=== PATIENT | male | born 1955 | race Caucasian/White ===

== ENCOUNTER 2016-09-15 16:53 | Inpatient (IN) | payer OTHER ==
[~2016-09-15] VITALS: Ht 170.2 cm; Wt 83.5 kg
[2016-09-15] VITALS (7 sets, daily range): BP systolic 155–189; BP diastolic 77–106; PULSE 58–93; RESP 16–20; TEMP 98.2–98.6; O2SAT 95–98
[~2016-09-15 16:53] MED LIST: ADVA100A INH; CYAN100017 PO; DULO20 PO; FENT75T TD; FLUT1INH INH; OXYC1TAB63 PO; OXYGENTANK NAS.CANULA; TAMS5CAP PO; VANC125C3 PO; WALKER WHEELS/F1 MIS; WHEEMIS3
[2016-09-15 17:23] LABS: AUTOMATED NEUTROPHIL # 9.2 TH/MM3 (1.8-7.7); BASOPHIL # 0.1 TH/MM3 (0-0.2); BASOPHIL % 1.1 % (0.0-2.0); EOSINOPHIL # 0.1 TH/MM3 (0-0.4); HEMATOCRIT 42.2 % (39.0-51.0); HEMO FLAGS DIFF FINAL; LYMPH % 14.1 % (9.0-44.0); LYMPHOCYTE # 1.7 TH/MM3 (1.0-4.8); MEAN CELL VOLUME 81.6 FL (80.0-100.0); MEAN CORPUSCULAR HEMOGLOBIN 27.6 PG (27.0-34.0); MEAN CORPUSCULAR HGB CONC 33.8 % (32.0-36.0); MONO % 8.5 % (0.0-8.0); NEUT % 75.3 % (16.0-70.0); PLATELET COUNT 438 TH/MM3 (150-450); RED BLOOD COUNT 5.17 MIL/MM3 (4.50-5.90); RED CELL DISTRIBUTION WIDTH 16.1 % (11.6-17.2); WHITE BLOOD COUNT 12.2 TH/MM3 (4.0-11.0)
[2016-09-15] MEDS ORDERED: SODIUM CHLOR 0.9% 1000 ML INJ 1,000 ML IV SCH (17:42)
--- NOTE | 2016-09-15 17:45 | RADRPT ---
EXAM DATE/TIME: 09/15/2016 17:27 [place] COMPARISON: CHEST PA & LAT, August 14, 2016, 9:54. INDICATIONS : Shortness of breath and chest tightness. MEDICAL HISTORY : Chronic obstructive pulmonary disease. Hypertension. Asthma. SURGICAL HISTORY : Chest tube, July 2016. ENCOUNTER: Initial ACUITY: 2 days PAIN SCORE: 0/10 LOCATION: Bilateral chest FINDINGS: The examination demonstrates chronic interstitial changes within the pulmonary parenchyma. The lungs are otherwise clear. The heart is normal in size. The bony structures are grossly intact. CONCLUSION: 1. There are chronic interstitial changes within the pulmonary parenchyma. Stable compared to prior e xam. Leeroy Mensah MD on September 15, 2016 at 17:42 Board Certified Radiologist. This report was verified electronically.
[2016-09-15 17:58] LABS: ALKALINE PHOSPHATASE 77 U/L (45-117); ALT (GPT) 29 U/L (12-78); ANION GAP 9 MEQ/L (5-15); AST (GOT) 23 U/L (15-37); BLOOD UREA NITROGEN 4 MG/DL (7-18); CHLORIDE 101 MEQ/L (98-107); GLOMERULAR FILTRATION RATE 119 ML/MIN (>89); SODIUM (NA) 139 MEQ/L (136-145); TOTAL BILIRUBIN ADULT 0.6 MG/DL (0.2-1.0)
[2016-09-15 17:59] LABS: CREATINE KINASE 35 U/L (39-308)
[2016-09-15] MEDS ORDERED: methylPREDNISolone SOD SUCC 125 MG/2 ML VIAL IVP ONE (18:00)
[2016-09-15 18:01] LABS: POTASSIUM 2.9 MEQ/L (3.5-5.1)
--- NOTE | 2016-09-15 18:04 | PD ---
HPI Chief Complaint: Respiratory Distress Time Seen by Provider: 17:58 Travel History International Travel<30 days: No Contact w/Intl Traveler<30days: No Traveled to known affect area: No History of Present Illness HPI 61-year-old male that presents to the ED for evaluation of shortness of breath and burning pain in the groin. Per patient his been short of breath for the past 2 days. Per patient he has a history of COPD and per patient he was discharged here with no inhalers. Per patient he has not used any medicine be discharged. Per patient he was put on a Mendoza secondary to urinary obstruction and has not follow with her neurologist. Per patient he did had one follow-up with the clinic after being discharged here but has not follow with anybody else. States that the burning its painful and is 8 out of 10. Patient chronically takes fentanyl and pain medication for chronic pain. Patient states that his pain is worsening and that what he believes is causing some of his shortness of breath. He was recently admitted about a month ago for severe pleural effusion and patient had multiple complications during that time. He denies any abdominal pain. He denies any nausea or vomiting. No bowel movement issues. He denies any cough. No fevers, chills or sweats. Allergy to codeine. PFSH Past Medical History Cardiovascular Problems: Yes COPD: Yes GERD: Yes Hypertension: Yes Past Surgical History Appendectomy: Yes Neurologic Surgery: Yes (BACK X3) Other Surgery: Yes (LLE GANGRENE REMOVAL) Social History Alcohol Use: No Tobacco Use: No (2007) Substance Use: No Allergies-Medications (Allergen,Severity, Reaction): Coded Allergies: Codeine (Verified Allergy, Severe, Seizures, 09/15/16) Reported Meds & Prescriptions Reported Meds & Active Scripts Active Cymbalta DR (Duloxetine HCl) 20 Mg Capdr 20 Mg PO DAILY Duragesic Patch 72 HR (Fentanyl) 75 Mcg/Hr Patch 1 Patch TD Q3D Review of Systems Except as stated in HPI: all other systems reviewed are Neg Physical Exam Narrative GENERAL: SKIN: Warm and dry. HEAD: Atraumatic. Normocephalic. EYES: Pupils equal and round. No scleral icterus. No injection or drainage. ENT: No nasal bleeding or discharge. Mucous membranes pink and moist. Tongue is midline. No uvula deviation. NECK: Trachea midline. No JVD. CARDIOVASCULAR: Regular rate and rhythm. No murmurs, S3, S4. RESPIRATORY: No accessory muscle use. Mild wheezing heard in all lung ruiz. Breath sounds equal bilaterally. GASTROINTESTINAL: Abdomen soft, non-tender, nondistended. Hepatic and splenic margins not palpable. MUSCULOSKELETAL: Extremities without clubbing, cyanosis, or edema. No obvious deformities. Full ROM of the upper and lower extremities. 2+ pulses bilaterally. NEUROLOGICAL: Awake and alert. No obvious cranial nerve deficits. Motor grossly within normal limits. Five out of 5 muscle strength in the arms and legs. Normal speech. PSYCHIATRIC: Appropriate mood and affect; insight and judgment normal. Data Data Last Documented VS Vital Signs Date Time Temp Pulse Resp B/P Pulse Ox O2 Delivery O2 Flow Rate FiO2 09/15/16 17:59 93 16 174/99 96 Nasal Cannula 2 09/15/16 16:55 98.2 Orders Complete Blood Count With Diff (09/15/16 17:00) Comprehensive Metabolic Panel (09/15/16 17:00) Ckmb (Isoenzyme) Profile (09/15/16 17:00) Troponin I (09/15/16 17:00) Prothrombin Time / Inr (Pt) (09/15/16 17:00) Act Partial Throm Time (Ptt) (09/15/16 17:00) Blood Culture (09/15/16 17:00) Lipase (09/15/16 17:00) Urinalysis - C+S If Indicated (09/15/16 17:00) Chest, Single Ap (09/15/16 17:00) Iv Access Insert/Monitor (09/15/16 17:00) Ecg Monitoring (09/15/16 17:00) Oximetry (09/15/16 17:00) Lactic Acid (09/15/16 17:00) Replace Mendoza (09/15/16 17:05) Electrocardiogram (09/15/16 ) Sodium Chlor 0.9% 1000 Ml Inj (Ns 1000 M (09/15/16 17:42) Methylprednisolone So Succ Inj (Solumedr (09/15/16 18:00) Albuterol Neb (Albuterol Neb) (09/15/16 18:00) Magnesium (Mg) (09/15/16 18:01) Potassium Cl 40 Meq/30 Ml Liq (Kcl 40 Me (09/15/16 18:15) Urine Culture (09/15/16 17:55) Ceftriaxone Inj (Rocephin Inj) (09/15/16 19:00) Admit Order (Ed Use Only) (09/15/16 18:56) Labs Laboratory Tests Test 09/15/16 09/15/16 09/15/16 17:09 17:45 17:55 White Blood Count 12.2 TH/MM3 Red Blood Count 5.17 MIL/MM3 Hemoglobin 14.3 GM/DL Hematocrit 42.2 % Mean Corpuscular Volume 81.6 FL Mean Corpuscular Hemoglobin 27.6 PG Mean Corpuscular Hemoglobin 33.8 % Concent Red Cell Distribution Width 16.1 % Platelet Count 438 TH/MM3 Mean Platelet Volume 8.3 FL Neutrophils (%) (Auto) 75.3 % Lymphocytes (%) (Auto) 14.1 % Monocytes (%) (Auto) 8.5 % Eosinophils (%) (Auto) 1.0 % Basophils (%) (Auto) 1.1 % Neutrophils # (Auto) 9.2 TH/MM3 Lymphocytes # (Auto) 1.7 TH/MM3 Monocytes # (Auto) 1.0 TH/MM3 Eosinophils # (Auto) 0.1 TH/MM3 Basophils # (Auto) 0.1 TH/MM3 CBC Comment DIFF FINAL Differential Comment Sodium Level 139 MEQ/L Potassium Level 2.9 MEQ/L Chloride Level 101 MEQ/L Carbon Dioxide Level 29.0 MEQ/L Anion Gap 9 MEQ/L Blood Urea Nitrogen 4 MG/DL Creatinine 0.68 MG/DL Estimat Glomerular Filtration 119 ML/MIN Rate Random Glucose 93 MG/DL Calcium Level 9.2 MG/DL Total Bilirubin 0.6 MG/DL Aspartate Amino Transf 23 U/L (AST/SGOT) Alanine Aminotransferase 29 U/L (ALT/SGPT) Alkaline Phosphatase 77 U/L Total Creatine Kinase 35 U/L Troponin I LESS THAN 0.02 NG/ML Total Protein 7.3 GM/DL Albumin 3.8 GM/DL Lipase 114 U/L Lactic Acid Level 1.1 mmol/L Urine Color YELLOW Urine Turbidity CLEAR Urine pH 7.5 Urine Specific [place] 1.010 Urine Protein 30 mg/dL Urine Glucose (UA) NEG mg/dL Urine Ketones 10 mg/dL Urine Occult Blood SMALL Urine Nitrite NEG Urine Bilirubin NEG Urine Urobilinogen LESS THAN 2.0 MG/DL Urine Leukocyte Esterase LARGE Urine RBC /hpf Urine WBC 140 /hpf Urine Bacteria OCC /hpf Urine Mucus FEW /lpf Microscopic Urinalysis Comment CULTURE INDICATED MDM Medical Decision Making Medical Screen Exam Complete: Yes Emergency Medical Condition: Yes Medical Record Reviewed: Yes Interpretation(s) CBC & BMP Diagram 09/15/16 17:09 EKG shows sinus rhythm with no sign of acute ischemia or arrhythmia. Read by me and attending. troponin negative CKMB negative UA shows UTI lactic acid neg Last Impressions Chest X-Ray 09/15/16 1700 Signed Impressions: Service Date/Time: Sunday, September 15, 2016 17:27 - CONCLUSION: 1. There are chronic interstitial changes within the pulmonary parenchyma. Stable compared to prior exam. Leeroy Mensah MD Differential Diagnosis UTI versus polynephritis versus electrolyte abnormality versus COPD exacerbation versus COPD versus acute on chronic pain versus chronic pain versus cystitis versus chest pain Narrative Course 61-year-old male that presents to the ED for evaluation of shortness of breath and urinary issues. Patient was properly examined and was found to have signs and symptoms consistent with appears to be at this time COPD exacerbation as well as exacerbation of pain. Patient appears to have signs and symptoms consistent also with infection of the urine. Patient has had a Mendoza since been discharged. Has not had any changes on it. He has not followed urologist. The urine on the back itself appears to be somewhat cloudy. The recommend changing the Mendoza as well as taking for urinary tract infection and sepsis. Patient is agreeable with this. Labs and imaging showed UTI as well as an elevated WBC and elevated heart rate. Patient meets sepsis criteria. Case was discussed in my attending Dr Moy who evaluated the patient and recommend admission for catheter related UTI and early sepsis. This was discussed with the patient agrees with plan. Patient is self-pay and follows with the community clinic. Patient will be admitted to [facility] for obs. Dr Diane agrees to admit. Procedures EKG Prior to Arrival: No Sepsis Criteria SIRS Criteria (2 or more): Heart rate over 90 (only one documented high HR), WBC > 33634, < 4000 or > 10% bands Sepsis Criteria (SIRS+source): Infect source susp/known Criteria Outcome: Meets SIRS criteria Diagnosis Primary Impression: Cystitis Additional Impressions: COPD (chronic obstructive pulmonary disease) Qualified Code: J42 - Chronic bronchitis, unspecified chronic bronchitis type Hypokalemia Admitting Information Admitting Physician Requests: Observation Martin Pedro Sep 15, 2016 18:04
[2016-09-15] MEDS: RESP: ALBUTEROL 2.5 MG/3 ML NEB (SCH) INH ×2 (18:15→19:52)
[2016-09-15] MEDS ORDERED: POTASSIUM CL 40 MEQ/30 ML LIQ UDC PO ONE (18:15)
[2016-09-15 18:30] LABS: BACTERIA, URINE OCC /hpf; BLOOD, URINE SMALL (NEG); COMMENT (UR) CULTURE INDICATED; CULTURE IF INDICATED CULTURE INDICATED; GLUCOSE,URINE NEG (NEG); KETONE, URINE 10 mg/dL (NEG); MUCUS URINE FEW /lpf (OCC); NITRITE,URINE NEG (NEG); PH, URINE 7.5 (5.0-8.5); URINE COLOR YELLOW (YELLW/STRAW)
--- NOTE | 2016-09-15 18:54 | PD ---
Physical Exam Date Seen by Provider: Sep 15, 2016 Time Seen by Provider: 17:00 Narrative I, Dr. Villarreal, have reviewed the advance practice practitioner's documentation and am in agreement, met with the patient face to face, made the diagnosis, and the medical decision making was done by me. *My assessment and Findings: Patient seen and evaluated with PA, please see PA note for further details. Here complaining of dysuria and shortness of breath. Initial evaluation shows wheezing bilaterally. Cardiac exam is unremarkable. EKG did not show any signs of acute dysrhythmias or ST changes. Laboratory Tests Test 09/15/16 09/15/16 17:09 17:55 White Blood Count 12.2 TH/MM3 (4.0-11.0) Neutrophils (%) (Auto) 75.3 % (16.0-70.0) Monocytes (%) (Auto) 8.5 % (0.0-8.0) Neutrophils # (Auto) 9.2 TH/MM3 (1.8-7.7) Monocytes # (Auto) 1.0 TH/MM3 (0-0.9) Potassium Level 2.9 MEQ/L (3.5-5.1) Blood Urea Nitrogen 4 MG/DL (7-18) Total Creatine Kinase 35 U/L (39-308) Troponin I LESS THAN 0.02 NG/ML (0.02-0.05) Urine Protein 30 mg/dL (NEG-TRACE) Urine Ketones 10 mg/dL (NEG) Urine Occult Blood SMALL (NEG) Urine Leukocyte Esterase LARGE (NEG) Urine WBC 140 /hpf (0-5) Urine Bacteria OCC /hpf (NONE) Urine Mucus FEW /lpf (OCC) Last 24 hours Impressions Chest X-Ray 09/15/16 1700 Signed Impressions: Service Date/Time: Thursday, September 15, 2016 17:27 - CONCLUSION: 1. There are chronic interstitial changes within the pulmonary parenchyma. Stable compared to prior exam. Leeroy Mensah MD Chest x-ray did not show any signs of acute pulmonary processes. He was given Solu-Medrol and nebulizers in the ER. Lab work shows significant UTI. At this point, there is concern for underlying sepsis and cultures were done followed by IV antibiotics in the ER. Plan to admit for further treatment. Case is discussed with Dr. Diane for admission. Data Data Last Documented VS Vital Signs Date Time Temp Pulse Resp B/P Pulse Ox O2 Delivery O2 Flow Rate FiO2 09/15/16 17:59 93 16 174/99 96 Nasal Cannula 2 09/15/16 16:55 98.2 Orders Complete Blood Count With Diff (09/15/16 17:00) Comprehensive Metabolic Panel (09/15/16 17:00) Ckmb (Isoenzyme) Profile (09/15/16 17:00) Troponin I (09/15/16 17:00) Prothrombin Time / Inr (Pt) (09/15/16 17:00) Act Partial Throm Time (Ptt) (09/15/16 17:00) Blood Culture (09/15/16 17:00) Lipase (09/15/16 17:00) Urinalysis - C+S If Indicated (09/15/16 17:00) Chest, Single Ap (09/15/16 17:00) Iv Access Insert/Monitor (09/15/16 17:00) Ecg Monitoring (09/15/16 17:00) Oximetry (09/15/16 17:00) Lactic Acid (09/15/16 17:00) Replace Mendoza (09/15/16 17:05) Electrocardiogram (09/15/16 ) Sodium Chlor 0.9% 1000 Ml Inj (Ns 1000 M (09/15/16 17:42) Methylprednisolone So Succ Inj (Solumedr (09/15/16 18:00) Albuterol Neb (Albuterol Neb) (09/15/16 18:00) Magnesium (Mg) (09/15/16 18:01) Potassium Cl 40 Meq/30 Ml Liq (Kcl 40 Me (09/15/16 18:15) Urine Culture (09/15/16 17:55) Ceftriaxone Inj (Rocephin Inj) (09/15/16 19:00) Labs Laboratory Tests Test 09/15/16 09/15/16 09/15/16 17:09 17:45 17:55 White Blood Count 12.2 TH/MM3 Red Blood Count 5.17 MIL/MM3 Hemoglobin 14.3 GM/DL Hematocrit 42.2 % Mean Corpuscular Volume 81.6 FL Mean Corpuscular Hemoglobin 27.6 PG Mean Corpuscular Hemoglobin 33.8 % Concent Red Cell Distribution Width 16.1 % Platelet Count 438 TH/MM3 Mean Platelet Volume 8.3 FL Neutrophils (%) (Auto) 75.3 % Lymphocytes (%) (Auto) 14.1 % Monocytes (%) (Auto) 8.5 % Eosinophils (%) (Auto) 1.0 % Basophils (%) (Auto) 1.1 % Neutrophils # (Auto) 9.2 TH/MM3 Lymphocytes # (Auto) 1.7 TH/MM3 Monocytes # (Auto) 1.0 TH/MM3 Eosinophils # (Auto) 0.1 TH/MM3 Basophils # (Auto) 0.1 TH/MM3 CBC Comment DIFF FINAL Differential Comment Sodium Level 139 MEQ/L Potassium Level 2.9 MEQ/L Chloride Level 101 MEQ/L Carbon Dioxide Level 29.0 MEQ/L Anion Gap 9 MEQ/L Blood Urea Nitrogen 4 MG/DL Creatinine 0.68 MG/DL Estimat Glomerular Filtration 119 ML/MIN Rate Random Glucose 93 MG/DL Calcium Level 9.2 MG/DL Total Bilirubin 0.6 MG/DL Aspartate Amino Transf 23 U/L (AST/SGOT) Alanine Aminotransferase 29 U/L (ALT/SGPT) Alkaline Phosphatase 77 U/L Total Creatine Kinase 35 U/L Troponin I LESS THAN 0.02 NG/ML Total Protein 7.3 GM/DL Albumin 3.8 GM/DL Lipase 114 U/L Lactic Acid Level 1.1 mmol/L Urine Color YELLOW Urine Turbidity CLEAR Urine pH 7.5 Urine Specific [place] 1.010 Urine Protein 30 mg/dL Urine Glucose (UA) NEG mg/dL Urine Ketones 10 mg/dL Urine Occult Blood SMALL Urine Nitrite NEG Urine Bilirubin NEG Urine Urobilinogen LESS THAN 2.0 MG/DL Urine Leukocyte Esterase LARGE Urine RBC /hpf Urine WBC 140 /hpf Urine Bacteria OCC /hpf Urine Mucus FEW /lpf Microscopic Urinalysis Comment CULTURE INDICATED MDM Medical Record Reviewed: Yes Supervised Visit with SWAPNIL: Yes Diagnosis Primary Impression: Sepsis Additional Impressions: Acute exacerbation of chronic obstructive pulmonary disease (COPD) URINARY TRACT INFECTION, SITE NOT SPECIFIED Admitting Information Admitting Physician Requests: Admit Carolin Villarreal MD Sep 15, 2016 18:54
[2016-09-15] MEDS ORDERED: ONDANSETRON HCL 4 MG/2 ML VIAL IVP PRN (19:00)
[2016-09-15] MEDS ORDERED: SODIUM CHLORIDE 0.9% FLUSH 5 ML FLUSH FLUSH PRN (19:00)
[2016-09-15] MEDS ORDERED: ACETAMINOPHEN 325 MG TAB PO PRN (19:00)
[2016-09-15] MEDS ORDERED: BISACODYL 10 MG SUPP PR PRN (19:00)
[2016-09-15] MEDS ORDERED: RESP: ALBUTEROL 2.5 MG/IPRATROPIUM 0.5 MG NEB (PRN) NEB (19:00)
[2016-09-15] MEDS ORDERED: cefTRIAXone INJ 1,000 MG in SODIUM CHLORIDE 0.9% INJ 100 ML IV ONE (19:00)
--- NOTE | 2016-09-15 19:04 | HHI.HP ---
[facility] Primary Care Physician No Primary Care Physician Admission Diagnosis cystitis with urinary lipscomb, COPD exacerbation Diagnoses: (1) COPD (chronic obstructive pulmonary disease) Diagnosis: Principal (2) Hypokalemia Diagnosis: Principal (3) Indwelling catheter present on admission Diagnosis: Principal (4) UTI (urinary tract infection) Diagnosis: Principal (5) HTN (hypertension) Diagnosis: Principal Travel History International Travel<30 Days: No Contact w/Intl Traveler <30 Da: No Traveled to Known Affected Are: No History of Present Illness This is a 61-year-old male with a PMH of COPD, Depression, Chronic Pain, HTN and Neurogenic Bladder w/ Indwelling Lipscomb who came to the ER w/ complaints of SOB and burning w/ urination x2 days. Denies fever, chills or cough. Has been using home MDI/Nebulizer w/ minimal relief. On arrival, BP 189/106, HR 83, O2 sat 97% on RA, Afebrile. Currently BP 136/98, HR 87. WBC 12.2. K+ 2.9. Lactic Acid 1.7. Troponin negative. UA positive for UTI. CXR with chronic interstitial changes, no acute findings. S/p Solu-Medrol and DuoNeb w/ some relief. S/p Rocephin in ER. Review of Systems Other ROS: 14 point review of systems otherwise negative. Past Family Social History Past Medical History PMH: COPD, HTN, Depression, Chronic Pain and Neurogenic Bladder w/ Indwelling Lipscomb Past Surgical History PAST SURGICAL HISTORY: Appendectomy, Back Surgery, LLE Allergies: Coded Allergies: Codeine (Verified Allergy, Severe, Seizures, 09/15/16) Family History PAST FAMILY HISTORY: Reviewed. No h/o DM or CAD Social History PAST SOCIAL HISTORY: Negative for alcohol, tobacco or drugs. Physical Exam Vital Signs Vital Signs Date Time Temp Pulse Resp B/P Pulse Ox O2 Delivery O2 Flow Rate FiO2 09/15/16 17:59 93 16 174/99 96 Nasal Cannula 2 09/15/16 17:59 85 16 174/99 96 Nasal Cannula 2 09/15/16 17:59 96 2 1/27/17 16:55 98.2 83 18 189/106 97 Physical Exam PE: GENERAL: Middle-aged white male in no acute distress. HEENT: PERRLA, EOMI. No scleral icterus or conjunctival pallor. No lid lag or facial droop. CARDIOVASCULAR: Regular rate and rhythm. No obvious murmurs to auscultation. No chest tenderness to palpation. RESPIRATORY: No obvious rhonchi. Occasional wheezing. Clear to auscultation. Breath sounds equal bilaterally. GASTROINTESTINAL: Abdomen soft, non-tender, nondistended. BS normal. MUSCULOSKELETAL: Extremities without clubbing, cyanosis, or edema. No obvious deformities. NEUROLOGICAL: Awake, alert and oriented x4. No focal neurologic deficits. Moving both upper and lower extremities spontaneously. Laboratory Laboratory Tests Test 09/15/16 09/15/16 09/15/16 17:09 17:45 17:55 White Blood Count 12.2 Red Blood Count 5.17 Hemoglobin 14.3 Hematocrit 42.2 Mean Corpuscular Volume 81.6 Mean Corpuscular Hemoglobin 27.6 Mean Corpuscular Hemoglobin 33.8 Concent Red Cell Distribution Width 16.1 Platelet Count 438 Mean Platelet Volume 8.3 Neutrophils (%) (Auto) 75.3 Lymphocytes (%) (Auto) 14.1 Monocytes (%) (Auto) 8.5 Eosinophils (%) (Auto) 1.0 Basophils (%) (Auto) 1.1 Neutrophils # (Auto) 9.2 Lymphocytes # (Auto) 1.7 Monocytes # (Auto) 1.0 Eosinophils # (Auto) 0.1 Basophils # (Auto) 0.1 CBC Comment DIFF FINAL Differential Comment Sodium Level 139 Potassium Level 2.9 Chloride Level 101 Carbon Dioxide Level 29.0 Anion Gap 9 Blood Urea Nitrogen 4 Creatinine 0.68 Estimat Glomerular Filtration 119 Rate Random Glucose 93 Calcium Level 9.2 Total Bilirubin 0.6 Aspartate Amino Transf 23 (AST/SGOT) Alanine Aminotransferase 29 (ALT/SGPT) Alkaline Phosphatase 77 Total Creatine Kinase 35 Troponin I LESS THAN 0.02 Total Protein 7.3 Albumin 3.8 Lipase 114 Lactic Acid Level 1.1 Urine Color YELLOW Urine Turbidity CLEAR Urine pH 7.5 Urine Specific [place] 1.010 Urine Protein 30 Urine Glucose (UA) NEG Urine Ketones 10 Urine Occult Blood SMALL Urine Nitrite NEG Urine Bilirubin NEG Urine Urobilinogen LESS THAN 2.0 Urine Leukocyte Esterase LARGE Urine RBC Urine WBC 140 Urine Bacteria OCC Urine Mucus FEW Microscopic Urinalysis Comment CULTURE INDICATED Date/Time Procedure Status Source Growth 09/15/16 17:55 Urine Culture Received Urine Clean Catch Pending 09/15/16 17:45 Aerobic Blood Culture Received Blood Peripheral Pending 09/15/16 17:45 Anaerobic Blood Culture Received Blood Peripheral Pending Result Diagram: 09/15/16 1709 09/15/16 170 Assessment and Plan Problem List: (1) COPD (chronic obstructive pulmonary disease) ICD Code: J44.9 Status: Chronic (2) Hypokalemia ICD Code: E87.6 Status: Acute (3) Indwelling catheter present on admission ICD Code: Z93.6 Status: Acute (4) UTI (urinary tract infection) ICD Code: N39.0 Status: Acute (5) HTN (hypertension) ICD Code: I10 Status: Chronic Assessment and Plan A/P: 1. COPD: Chronic Respiratory Failure w/ Acute Exacerbation. S/p Solu-Medrol and DuoNeb w/ some improvement. CXR w/ no acute findings, images reviewed by me. Continue Solu-Medrol, DuoNeb, Symbicort, Mucinex. O2 sat stable. 2. Hypokalemia: K+ 2.9. S/p replacement in ER, will recheck and replace as needed. 3. Indwelling Lipscomb: h/o Neurogenic Bladder w/ Obstruction s/p indwelling Lipscomb. 4. UTI: U/a w/ UTI, Afebrile, WBC 12. S/p Rocephin in ER, will continue w/ IV Abx. Repeat labs in am. 5. HTN: Not on antihypertensives. BP 180's on arrival, currently 160's systolic. Will monitor. 6. DVT Prophylaxis: SCD/Teds. 7. Social work for d/c planning as needed. 8. Case discussed w/ ER physician at length. Problem Qualifiers (1) COPD (chronic obstructive pulmonary disease): Qualified Code: J42 - Chronic bronchitis, unspecified chronic bronchitis type Irma Diane MD Sep 15, 2016 19:04
[2016-09-15 19:17] LABS: PROTHROMBIN TIME - PATIENT 10.7 SEC (9.8-11.6)
[2016-09-15] MEDS: RESP: ALBUTEROL 2.5 MG/IPRATROPIUM 0.5 MG NEB (SCH) NEB (20:00)
[2016-09-15] MEDS: SODIUM CHLORIDE 0.9% FLUSH 5 ML FLUSH FLUSH SCH (21:59)
[2016-09-15] MEDS: guaiFENesin E.R. 600 MG TAB PO SCH (22:01)
[2016-09-15] MEDS: BUDESONIDE-FORMOTEROL 160/4.5 MCG INHALER INH SCH (22:02)
[2016-09-15] MEDS: fentaNYL 75 MCG/HR PATCH TD SCH (22:02)
[2016-09-15] MEDS: MORPHINE SULFATE 4 MG/ML INJ IV PRN (22:47)
[2016-09-15] MEDS: methylPREDNISolone SOD SUCC 40 MG/1 ML VIAL IV PUSH SCH (22:47)
[2016-09-16] VITALS (11 sets, daily range): BP systolic 125–176; BP diastolic 65–90; PULSE 73–94; RESP 18–20; TEMP 96.2–98.6; O2SAT 94–97
[2016-09-16] MEDS: MORPHINE SULFATE 4 MG/ML INJ IV PRN ×4 (02:47→21:21)
[2016-09-16] MEDS: methylPREDNISolone SOD SUCC 40 MG/1 ML VIAL IV PUSH SCH ×3 (05:46→18:00)
[2016-09-16 06:50] LABS: AUTOMATED NEUTROPHIL # 9.2 TH/MM3 (1.8-7.7); BASOPHIL % 0.1 % (0.0-2.0); HEMATOCRIT 38.8 % (39.0-51.0); HEMO FLAGS DIFF FINAL; LYMPH % 8.1 % (9.0-44.0); LYMPHOCYTE # 0.8 TH/MM3 (1.0-4.8); MEAN CELL VOLUME 82.4 FL (80.0-100.0); MEAN CORPUSCULAR HEMOGLOBIN 27.2 PG (27.0-34.0); MONO % 1.1 % (0.0-8.0); NEUT % 90.7 % (16.0-70.0); PLATELET COUNT 401 TH/MM3 (150-450); RED BLOOD COUNT 4.71 MIL/MM3 (4.50-5.90); RED CELL DISTRIBUTION WIDTH 16.1 % (11.6-17.2); WHITE BLOOD COUNT 10.1 TH/MM3 (4.0-11.0)
[2016-09-16 07:19] LABS: ALKALINE PHOSPHATASE 67 U/L (45-117); ALT (GPT) 23 U/L (12-78); ANION GAP 9 MEQ/L (5-15); AST (GOT) 16 U/L (15-37); BICARBONATE 27.5 MEQ/L (21.0-32.0); BLOOD UREA NITROGEN 7 MG/DL (7-18); CHLORIDE 102 MEQ/L (98-107); GLOMERULAR FILTRATION RATE 137 ML/MIN (>89); SODIUM (NA) 138 MEQ/L (136-145); TOTAL BILIRUBIN ADULT 0.4 MG/DL (0.2-1.0)
[2016-09-16] MEDS: RESP: ALBUTEROL 2.5 MG/IPRATROPIUM 0.5 MG NEB (SCH) NEB ×4 (08:03→22:27)
[2016-09-16] MEDS: BUDESONIDE-FORMOTEROL 160/4.5 MCG INHALER INH SCH ×2 (08:49→21:20)
[2016-09-16] MEDS: SODIUM CHLORIDE 0.9% FLUSH 5 ML FLUSH FLUSH SCH ×2 (08:49→21:21)
[2016-09-16] MEDS: guaiFENesin E.R. 600 MG TAB PO SCH ×2 (08:49→21:00)
[2016-09-16] MEDS: DULoxetine HCl DR 20 MG CAP PO SCH (08:49)
--- NOTE | 2016-09-16 09:13 | HHI.PR ---
Subjective Remarks Follow up for complicated UTI and COPD exacerbation. The patient reports continued lower abdominal/suprapubic pain and burning upon urination. He also reports pressure when trying to have a BM. Denies fevers or chills. He feels his breathing is improved, denies any current shortness of breath. He wears oxygen at home. He has no other medical complaints at this time. Objective Vitals Vital Signs Date Time Temp Pulse Resp B/P Pulse Ox O2 Delivery O2 Flow Rate FiO2 09/16/16 08:03 97 Nasal Cannula 2.00 09/16/16 08:00 96.2 73 18 169/82 96 09/16/16 03:54 98.6 77 20 160/77 95 09/15/16 23:55 98.6 58 20 155/78 95 09/15/16 22:12 98 Nasal Cannula 2.00 09/15/16 22:00 90 09/15/16 21:13 98.6 86 20 171/77 97 09/15/16 20:00 87 16 176/98 96 Nasal Cannula 2 09/15/16 17:59 93 16 174/99 96 Nasal Cannula 2 09/15/16 17:59 85 16 174/99 96 Nasal Cannula 2 09/15/16 17:59 96 2 09/15/16 16:55 98.2 83 18 189/106 97 I/O 09/15/16 09/15/16 09/15/16 09/16/16 09/16/16 09/16/16 07:00 15:00 23:00 07:00 15:00 23:00 Output Total 450 ml Balance -450 ml Output Urine Total 450 ml # Bowel Movements 1 1 Result Diagram: 09/16/16 0515 09/16/16 0515 Imaging Last Impressions Chest X-Ray 09/15/16 1700 Signed Impressions: Service Date/Time: Thursday, September 15, 2016 17:27 - CONCLUSION: 1. There are chronic interstitial changes within the pulmonary parenchyma. Stable compared to prior exam. Leeroy Mensah MD Objective Remarks GENERAL: Well-developed, well-nourished male patient in [facility]. SKIN: Warm and dry. HEAD: Atraumatic. Normocephalic. EYES: Pupils equal and round. No scleral icterus. No injection or drainage. ENT: No nasal bleeding or discharge. Mucous membranes pink and moist. NECK: Trachea midline. CARDIOVASCULAR: Regular rate and rhythm. RESPIRATORY: No accessory muscle use. Diminished breath sounds at bilateral bases, otherwise clear to auscultation, no wheezing. Breath sounds equal bilaterally. GASTROINTESTINAL: Abdomen soft, non-tender, nondistended. Hepatic and splenic margins not palpable. GENITOURINARY: Mendoza catheter in place, no surrounding discharge/bleeding; urine clear yellow. MUSCULOSKELETAL: 1+ bilateral lower extremity edema. No obvious deformities. NEUROLOGICAL: Awake and alert. No obvious cranial nerve deficits. Motor grossly within normal limits. Normal speech. PSYCHIATRIC: Appropriate mood and affect; insight and judgment normal. Medications and IVs Current Medications Medications (Trade) Dose Ordered Sig/Joselin Route Start Time Stop Time Status Last Admin (SoluMEDROL INJ) 40 mg Q6HR IV PUSH 09/16/16 00:00 09/16/16 05:46 (Mucinex Er) 600 mg BID PO 09/15/16 21:00 09/16/16 08:49 Budesonide/ Formoterol Fumarate 2 puff 2 puff Q12HR INH 09/15/16 21:00 09/16/16 08:49 (Rocephin Inj/NS Inj) 100 ml @ 200 mls/hr Q24H IV 09/16/16 18:00 (NS Flush) 2 ml UNSCH PRN FLUSH 09/15/16 19:00 (NS Flush) 2 ml BID FLUSH 09/15/16 21:00 09/16/16 08:49 (Zofran Inj) 4 mg Q6H PRN IVP 09/15/16 19:00 (Dulcolax Supp) 10 mg DAILY PRN NE 09/15/16 19:00 (Tylenol) 650 mg Q6H PRN PO 09/15/16 19:00 (Morphine Inj) 2 mg Q3H PRN IV 09/15/16 19:00 09/16/16 08:59 (Cymbalta Dr) 20 mg DAILY PO 09/16/16 09:00 09/16/16 08:49 (Duragesic 75 Mcg Patch.72 Hr) 1 patch Q3D TD 09/15/16 21:00 09/15/16 22:02 Miscellaneous Information 1 Q3D T-DERMAL 09/18/16 21:00 Urinary Catheter: Yes Assessment to: Continue Date of Insertion: Sep 15, 2016 A/P Problem List: (1) COPD (chronic obstructive pulmonary disease) ICD Code: J44.9 Status: Chronic (2) Hypokalemia ICD Code: E87.6 Status: Acute (3) Indwelling catheter present on admission ICD Code: Z93.6 Status: Acute (4) UTI (urinary tract infection) ICD Code: N39.0 Status: Acute (5) HTN (hypertension) ICD Code: I10 Status: Chronic Assessment and Plan 61-year-old male with a PMH of COPD, Depression, Chronic Pain, HTN and Neurogenic Bladder w/ Indwelling Mendoza who came to the ER w/ complaints of SOB and burning w/ urination x2 days. Acute on Chronic Respiratory Failure secondary to COPD Exacerbation: on home O2. S/p Solu-Medrol and DuoNeb w/ some improvement. CXR w/ no acute findings, images reviewed by me. Continue IV Solu-Medrol 40mg q6h, DuoNeb q4h joselin and q2h prn, Symbicort bid, Mucinex. O2 sat stable. Hypokalemia: K+ 2.9. S/p replacement in ER, repeat K 4.0. Resolved. Neurogenic Bladder/Obstruction with Indwelling Mendoza: replaced Mendoza 09/15 secondary to infection. Patient still with bladder spasms. Started on oxybutynin 5mg bid scheduled. Complicated UTI with indwelling Mendoza as above: U/a w/ UTI, Afebrile, WBC 12.2K. Continue IV Rocephin. Monitor urine culture. HTN: Not on antihypertensives. BP 180's on arrival, currently 160's systolic. Monitor. Added IV Vasotec prn SBP >160. Control pain. Consider starting lisinopril if still elevated despite pain control. DVT Prophylaxis: SCD/Teds. Written by Birgit Munoz, acting as scribe for Dr. Ca on 09/16/16 at 09:07. The documentation accurately reflects the work performed [id number] by me Dr. Ca on 09/16/16 at 09:07. Discharge Planning Possible discharge tomorrow. Problem Qualifiers (1) COPD (chronic obstructive pulmonary disease): Qualified Code: J42 - Chronic bronchitis, unspecified chronic bronchitis type Birgit Munoz PA-C Sep 16, 2016 09:13 Tabatha Ca MD Sep 16, 2016 18:06
[2016-09-16] MEDS: OXYBUTYNIN CHLORIDE 5 MG TAB PO SCH ×2 (09:45→21:20)
[2016-09-16] MEDS: ENALAPRILAT 1.25 MG/ML VIAL IV PUSH PRN (12:11)
--- NOTE | 2016-09-16 12:29 | EKG ---
Date Performed: 09/15/2016 Time Performed: 17:33:02 PTAGE: 61 years EKG: Sinus rhythm WITH OCCASIONAL VENTRICULAR PREMATURE COMPLEXES INCOMPLETE RIGHT BUNDLE BRANCH BLOCK BORDERLINE ECG PREVIOUS TRACING : 06/25/2016 05.13 Compared to prior tracing no significant change DOCTOR: Philipp Aldana Interpretating Date/Time 09/16/2016 12:27:44
[2016-09-16] MEDS ORDERED: cefTRIAXone INJ 1,000 MG in SODIUM CHLORIDE 0.9% INJ 100 ML IV SCH (18:00)
[2016-09-17] VITALS (7 sets, daily range): BP systolic 147–167; BP diastolic 77–88; PULSE 74–90; RESP 16–22; TEMP 96.1–98.1; O2SAT 92–98
[2016-09-17] MEDS: methylPREDNISolone SOD SUCC 40 MG/1 ML VIAL IV PUSH SCH ×4 (00:51→18:32)
[2016-09-17] MEDS: RESP: ALBUTEROL 2.5 MG/IPRATROPIUM 0.5 MG NEB (SCH) NEB ×4 (07:17→20:00)
[2016-09-17] MEDS: BUDESONIDE-FORMOTEROL 160/4.5 MCG INHALER INH SCH ×2 (08:03→21:43)
[2016-09-17] MEDS: OXYBUTYNIN CHLORIDE 5 MG TAB PO SCH ×2 (08:04→21:42)
[2016-09-17] MEDS: guaiFENesin E.R. 600 MG TAB PO SCH ×2 (08:04→21:42)
[2016-09-17] MEDS: DULoxetine HCl DR 20 MG CAP PO SCH (08:04)
[2016-09-17] MEDS: ENALAPRILAT 1.25 MG/ML VIAL IV PUSH PRN (08:05)
[2016-09-17] MEDS: SODIUM CHLORIDE 0.9% FLUSH 5 ML FLUSH FLUSH SCH ×2 (08:33→21:43)
--- NOTE | 2016-09-17 09:19 | HHI.PR ---
Subjective Remarks Follow up for complicated UTI and COPD exacerbation. The patient reports constipation today, no BM in 40hours now. He states he has some lower abdominal discomfort secondary to both the bladder spasms and pressure from constipation. He is able to tolerate his food. No nausea/vomiting. No fevers/chills. Breathing is better, minimal occasional wheeze, but cough is improving. He wears 2 L O2 at home. Objective Vitals Vital Signs Date Time Temp Pulse Resp B/P Pulse Ox O2 Delivery O2 Flow Rate FiO2 09/17/16 07:51 97.6 78 20 162/88 92 09/17/16 07:18 98 Nasal Cannula 2.00 09/17/16 04:26 96.1 74 18 158/88 96 09/16/16 23:40 97.6 94 18 125/65 96 09/16/16 22:29 97 Nasal Cannula 2.00 09/16/16 20:33 97.0 86 20 142/79 95 09/16/16 20:00 89 09/16/16 16:00 97.6 84 18 129/66 95 09/16/16 13:41 134/69 09/16/16 12:30 97.8 82 18 176/90 94 I/O 09/16/16 09/16/16 09/16/16 09/17/16 09/17/16 09/17/16 07:00 15:00 23:00 07:00 15:00 23:00 Intake Total 880 ml 240 ml Output Total 450 ml 350 ml 600 ml Balance -450 ml 530 ml 240 ml -600 ml Intake Oral 880 ml 240 ml Output Urine Total 450 ml 350 ml 600 ml # Voids 0 # Bowel Movements 1 2 0 Result Diagram: 09/16/16 0515 09/16/16 0515 Imaging Last Impressions Chest X-Ray 09/15/16 1700 Signed Impressions: Service Date/Time: Thursday, September 15, 2016 17:27 - CONCLUSION: 1. There are chronic interstitial changes within the pulmonary parenchyma. Stable compared to prior exam. Leeroy Mensah MD Objective Remarks GENERAL: Well-developed, well-nourished male patient in [facility]. SKIN: Warm and dry. HEAD: Atraumatic. Normocephalic. NECK: Trachea midline. CARDIOVASCULAR: Regular rate and rhythm. No murmur. RESPIRATORY: No accessory muscle use. Diminished breath sounds at bilateral bases, and expiratory wheezing in upper airways. Breath sounds equal bilaterally. GASTROINTESTINAL: Abdomen soft, non-tender, nondistended. GENITOURINARY: Mendoza catheter in place, no surrounding discharge/bleeding; urine clear yellow. MUSCULOSKELETAL: 1+ bilateral lower extremity edema. No obvious deformities. NEUROLOGICAL: Awake and alert. No obvious cranial nerve deficits. Motor grossly within normal limits. Normal speech. PSYCHIATRIC: Appropriate mood and affect; insight and judgment normal. Medications and IVs Current Medications Medications (Trade) Dose Ordered Sig/Joselin Route Start Time Stop Time Status Last Admin (SoluMEDROL INJ) 40 mg Q6HR IV PUSH 09/16/16 00:00 09/17/16 05:57 (Mucinex Er) 600 mg BID PO 09/15/16 21:00 09/17/16 08:04 Budesonide/ Formoterol Fumarate 2 puff 2 puff Q12HR INH 09/15/16 21:00 09/17/16 08:03 (Rocephin Inj/NS Inj) 100 ml @ 200 mls/hr Q24H IV 09/16/16 18:00 09/16/16 18:00 (NS Flush) 2 ml UNSCH PRN FLUSH 09/15/16 19:00 (NS Flush) 2 ml BID FLUSH 09/15/16 21:00 09/17/16 08:33 (Zofran Inj) 4 mg Q6H PRN IVP 09/15/16 19:00 (Dulcolax Supp) 10 mg DAILY PRN NC 09/15/16 19:00 (Tylenol) 650 mg Q6H PRN PO 09/15/16 19:00 (Morphine Inj) 2 mg Q3H PRN IV 09/15/16 19:00 09/16/16 21:21 (Cymbalta Dr) 20 mg DAILY PO 09/16/16 09:00 09/17/16 08:04 (Duragesic 75 Mcg Patch.72 Hr) 1 patch Q3D TD 09/15/16 21:00 09/15/16 22:02 Miscellaneous Information 1 Q3D T-DERMAL 09/18/16 21:00 (Ditropan) 5 mg Q12HR PO 09/16/16 09:15 09/17/16 08:04 (Vasotec Inj) 1.25 mg Q6H PRN IV PUSH 09/16/16 10:45 09/16/16 12:11 (Kori-Colace) 2 tab BID PO 09/17/16 09:30 09/17/16 09:32 Urinary Catheter: Yes Assessment to: Continue Date of Insertion: Sep 15, 2016 A/P Problem List: (1) COPD (chronic obstructive pulmonary disease) ICD Code: J44.9 Status: Chronic (2) Hypokalemia ICD Code: E87.6 Status: Acute (3) Indwelling catheter present on admission ICD Code: Z93.6 Status: Acute (4) UTI (urinary tract infection) ICD Code: N39.0 Status: Acute (5) HTN (hypertension) ICD Code: I10 Status: Chronic Assessment and Plan 61-year-old male with a PMH of COPD, Depression, Chronic Pain, HTN and Neurogenic Bladder w/ Indwelling Mendoza who came to the ER w/ complaints of SOB and burning w/ urination x2 days. Acute on Chronic Respiratory Failure secondary to COPD Exacerbation: on home 2L O2. S/p Solu-Medrol and DuoNeb w/ some improvement. CXR w/ no acute findings, images reviewed by me. Continue IV Solu-Medrol 40mg q6h, DuoNeb q4h joselin and q2h prn, Symbicort bid, Mucinex. Hypokalemia: K+ 2.9. S/p replacement in ER, repeat K 4.0. Resolved. Neurogenic Bladder/Obstruction with Indwelling Mendoza: replaced Mendoza 09/15 secondary to infection. Patient still with bladder spasms. Started on oxybutynin 5mg bid scheduled. Complicated UTI in a male with indwelling Mendoza as above: U/a w/ UTI, Afebrile , WBC 12.2K. Continue IV Rocephin. Preliminary urine culture with gram negative rods. HTN: Not on antihypertensives. BP 180's on arrival, currently 160's systolic. Monitor. Added IV Vasotec prn SBP >160. Control pain. Consider starting lisinopril if still elevated despite pain control. BP improving. DVT Prophylaxis: SCD/Teds. Written by Birgit Munoz, acting as scribe for Dr. Ca on 09/17/16 at 09:18. The documentation accurately reflects the work performed [id number] by me Dr. Ca on 09/17/16 at 09:18. Problem Qualifiers (1) COPD (chronic obstructive pulmonary disease): Qualified Code: J42 - Chronic bronchitis, unspecified chronic bronchitis type Birgit Munoz PA-C Sep 17, 2016 09:19 Tabatha Ca MD Sep 17, 2016 14:33
[2016-09-17] MEDS ORDERED: MAGNESIUM HYDROXIDE SUSP 30 ML CUP PO ONE (09:30)
[2016-09-17] MEDS: DOCUSATE SODIUM 50 MG/SENNA 8.6 MG TAB PO SCH ×2 (09:32→21:42)
[2016-09-17] MEDS: MORPHINE SULFATE 4 MG/ML INJ IV PRN ×3 (11:21→21:41)
[2016-09-17] MEDS ORDERED: ASP: Documented ESBL, MDR A baumannii or P. aeruginosa XX PRN (15:00)
[2016-09-17] MEDS ORDERED: MISCELLANEOUS PHARMACY INFORMATION XX PRN (15:00)
[2016-09-17] MEDS: ERTAPENEM INJ 1,000 MG in SODIUM CHLORIDE 0.9% INJ 100 ML IV SCH (15:35)
--- NOTE | 2016-09-17 15:48 | PD.CONS ---
History of Present Illness Service Infectious disease Consult Requested By Autumn Lind PA-C Reason for Consult Evaluate patient with Klebsiella UTI Primary Care Physician No Primary Care Physician Diagnoses: History of Present Illness Patient seen and examined. Records reviewed. Patient is a 61-year-old male, presented to the hospital complaining of 2 day history of shortness of breath. He has been experiencing some burning in his urethra, and urine has been leaking around his indwelling Lipscomb catheter and this has been going on for the last 3 days. Patient had a recent hospitalization from June 24 to August 14. During that hospitalization he was treated for pneumonia, UTI, as well as C. difficile colitis. He had a Lipscomb catheter in place, and was removed during that admission, but he developed urinary retention. Lipscomb catheter was reinserted, and urology evaluated the patient and started him on Flomax. The plan at that time was for him to follow-up with the urologist and have voiding trials. His Lipscomb was changed August 09 and he was discharged August 14. During his last hospitalization patient was also found to have a fluid collection in the left iliac was muscle, and it was deemed to be a sterile hematoma. It was aspirated and the culture came back negative. Patient could not get an appointment for follow-up with the urologist. He had been to the [facility] once. Patient also stated that he does not have a portable oxygen, and has difficulty going to his doctor's appointment. He is chronically on nasal O2 24 hours today. Patient denies any fever or chills or sweats. He denies any significant cough or congestion. He denies any chest pain. Currently his breathing is markedly improved. Patient denies any nausea vomiting or any diarrhea. He actually has been constipated. The Lipscomb catheter was change when he came into the emergency room. His WBC is mildly elevated. Chest x-ray showed chronic interstitial changes, and stable findings compared to his last chest x-ray. His urinalysis showed significant pyuria, and the urine culture has Klebsiella pneumoniae ESBL positive. Infectious disease consultation has been requested to evaluate the patient. Review of Systems Constitutional: DENIES: Fever, Chills Eyes: DENIES: Eye pain Ears, nose, mouth, throat: DENIES: Nasal discharge, Oral lesions, Throat pain, Ear Pain, Sinus Pain Respiratory: COMPLAINS OF: Shortness of breath, DENIES: Cough Cardiovascular: DENIES: Chest pain, Palpitations, Syncope Gastrointestinal: COMPLAINS OF: Constipation, DENIES: Abdominal pain, Diarrhea , Nausea, Vomiting Genitourinary: COMPLAINS OF: Dysuria Musculoskeletal: DENIES: Joint pain, Joint Swelling Integumentary: DENIES: Rash Neurologic: DENIES: Headache Psychiatric: DENIES: Anxiety Past Family Social History Allergies: Coded Allergies: Codeine (Verified Allergy, Severe, Seizures, 09/15/16) Past Medical History COPD, emphysema Hypertension GERD Previous episode of pneumonia Urinary retention History of C. difficile colitis during his last admission Past Surgical History Appendectomy Back surgery 3 for disc problem Skin grafting for gangrene of the left lower extremity Active Ordered Medications Tylenol Albuterol Dulcolax Symbicort Cymbalta Vasotec Invanz Fentanyl patch Mucinex Solu-Medrol Morphine Zofran Ditropan Kori-Colace Social History Patient is an ex-smoker quit in 2010, smoked 2 packs per day for 45 years No recent alcohol use quit in Denies illicit drug use Physical Exam Vital Signs Vital Signs Date Time Temp Pulse Resp B/P Pulse Ox O2 Delivery O2 Flow Rate FiO2 09/17/16 15:16 98.1 84 22 148/77 94 09/17/16 11:15 97.7 77 20 147/83 92 09/17/16 08:00 90 09/17/16 07:51 97.6 78 20 162/88 92 09/17/16 07:18 98 Nasal Cannula 2.00 09/17/16 04:26 96.1 74 18 158/88 96 09/16/16 23:40 97.6 94 18 125/65 96 09/16/16 22:29 97 Nasal Cannula 2.00 09/16/16 20:33 97.0 86 20 142/79 95 09/16/16 20:00 89 09/16/16 16:00 97.6 84 18 129/66 95 Physical Exam GENERAL: This is a well-nourished, well-developed male, awake and alert, not in any respiratory distress at the time my exam. He is on nasal O2. SKIN: Warm and dry. No generalized rash. Slightly decreased turgor. HEAD: Atraumatic. Normocephalic. No temporal or scalp tenderness. EYES: [place] conjunctivae. Pupils equal round and reactive. Extraocular motions intact. No scleral icterus. No injection or drainage. ENT: Nose without bleeding, or purulent drainage. Moist oral mucosa, he wears upper dentures. Throat without erythema, or exudate. Uvula midline. Airway patent. NECK: Trachea midline. No JVD or lymphadenopathy. Supple, nontender, no meningeal signs. CARDIOVASCULAR: Regular rate and rhythm without murmurs, gallops, or rubs. RESPIRATORY: Clear to auscultation. Breath sounds equal bilaterally. Occasional wheezing on the right side. GASTROINTESTINAL: Abdomen soft, non-tender, nondistended. Bowel sounds are present and normoactive. No hepato-splenomegaly, or palpable masses. No guarding. MUSCULOSKELETAL: Extremities without clubbing, cyanosis, or edema. No joint effusion, or edema noted. No calf tenderness. Negative Homans sign bilaterally. NEUROLOGICAL: Awake and alert. Cranial nerves II through XII intact. Motor and sensory grossly within normal limits. Five out of 5 muscle strength in all muscle groups. Normal speech. PSYCH: Normal affect, calm and cooperative LINE: PIV with no evidence of infection : Lipscomb cath in place, urine clear with some sediment BACK: No CVA tenderness, has resolving ecchymoses in the L flank Laboratory Date/Time Procedure Status Source Growth 09/15/16 17:55 Urine Culture - Final Complete Urine Clean Catch Klebsiella Pneumoniae Esbl Pos 09/15/16 17:45 Aerobic Blood Culture - Preliminary Resulted Blood Peripheral NO GROWTH IN 2 DAYS 09/15/16 17:45 Anaerobic Blood Culture - Preliminary Resulted Blood Peripheral NO GROWTH IN 2 DAYS Result Diagram: 09/16/16 0515 09/16/16 0515 Imaging RADIOLOGY STUDIES/FILMS REVIEWED Last Impressions Chest X-Ray 09/15/16 1700 Signed Impressions: Service Date/Time: Thursday, September 15, 2016 17:27 - CONCLUSION: 1. There are chronic interstitial changes within the pulmonary parenchyma. Stable compared to prior exam. Leeroy Mensah MD Assessment and Plan Assessment and Plan IMPRESSION COPD with acute excaerbation, better - no PNA on his CXR UTI, has indwelling lipscomb - no fever or chills - likely had blockage due to sediment - C/S with Klebsiella ESBL (+) Episode of C diff colitis during last admission RECOMMENDATION Repeat UA and C/S Continue INvanz for now - await new C/S and decide on Abx Monitor for diarrhea Add Lactinex Rx COPD MOnitor progress ?Voiding trial once UTI better I will follow along with you Thank you for this consultation Discussed Condition With D/W Autumn Munoz PA-C Explained plan to patient Colette Link MD Sep 17, 2016 15:48
[2016-09-17 17:00] LABS: BACTERIA, URINE OCC /hpf; BLOOD, URINE TRACE (NEG); GLUCOSE,URINE NEG (NEG); KETONE, URINE NEG (NEG); MUCUS URINE MOD /lpf (OCC); NITRITE,URINE NEG (NEG); SQUAMOUS EPITHELIAL CELL URINE <1 /hpf (0-5); URINE COLOR YELLOW (YELLW/STRAW)
[2016-09-17 17:02] LABS: COMMENT (UR) CATH-CULTURE IND; CULTURE IF INDICATED CATH CULTURE IND
[2016-09-17] MEDS: LACTOBACILLUS ACIDOPHILUS TAB PO SCH (18:32)
[2016-09-18] VITALS (10 sets, daily range): BP systolic 151–179; BP diastolic 76–93; PULSE 72–99; RESP 18; TEMP 96.4–97.8; O2SAT 94–96
[2016-09-18] MEDS: methylPREDNISolone SOD SUCC 40 MG/1 ML VIAL IV PUSH SCH ×5 (00:14→23:59)
[2016-09-18] MEDS: ENALAPRILAT 1.25 MG/ML VIAL IV PUSH PRN (00:30)
[2016-09-18] MEDS: MORPHINE SULFATE 4 MG/ML INJ IV PRN ×4 (06:21→18:15)
[2016-09-18] MEDS: RESP: ALBUTEROL 2.5 MG/IPRATROPIUM 0.5 MG NEB (SCH) NEB ×4 (08:44→21:09)
[2016-09-18] MEDS: OXYBUTYNIN CHLORIDE 5 MG TAB PO SCH ×2 (09:00→21:28)
[2016-09-18] MEDS: DOCUSATE SODIUM 50 MG/SENNA 8.6 MG TAB PO SCH ×2 (09:18→21:27)
[2016-09-18] MEDS: guaiFENesin E.R. 600 MG TAB PO SCH ×2 (09:18→21:27)
[2016-09-18] MEDS: SODIUM CHLORIDE 0.9% FLUSH 5 ML FLUSH FLUSH SCH ×2 (09:18→21:27)
[2016-09-18] MEDS: LACTOBACILLUS ACIDOPHILUS TAB PO SCH ×3 (09:18→18:15)
[2016-09-18] MEDS: DULoxetine HCl DR 20 MG CAP PO SCH (09:18)
[2016-09-18] MEDS: BUDESONIDE-FORMOTEROL 160/4.5 MCG INHALER INH SCH ×2 (09:24→21:27)
--- NOTE | 2016-09-18 10:07 | HHI.IDPN ---
Subjective Subjective Remarks Notes reviewed Afebrile Good sats on nasal O2 Repeat UA, pyuria better BC negative Antibiotics Invanz Lines PIV Past Medical History COPD, emphysema Hypertension GERD Previous episode of pneumonia Urinary retention History of C. difficile colitis during his last admission Past Surgical History Appendectomy Back surgery 3 for disc problem Skin grafting for gangrene of the left lower extremity Allergies: Coded Allergies: Codeine (Verified Allergy, Severe, Seizures, 09/15/16) Objective . Vital Signs Date Time Temp Pulse Resp B/P Pulse Ox O2 Delivery O2 Flow Rate FiO2 09/18/16 08:47 95 Nasal Cannula 2.00 09/18/16 08:00 96.7 72 18 160/92 96 09/18/16 04:00 97.8 99 18 151/83 95 09/18/16 00:39 78 157/78 09/18/16 00:29 160/76 09/18/16 00:00 97.1 80 18 162/93 94 09/17/16 20:00 97.9 79 16 167/87 95 09/17/16 15:16 98.1 84 22 148/77 94 09/17/16 11:15 97.7 77 20 147/83 92 09/17/16 09/17/16 09/18/16 15:00 23:00 07:00 Intake Total 720 ml Output Total 350 ml 875 ml Balance -350 ml -155 ml Intake Oral 720 ml Output Urine Total 350 ml 875 ml # Voids 1 # Bowel Movements 1 3 . Microbiology Date/Time Procedure Status Source Growth 09/15/16 17:30 Aerobic Blood Culture - Preliminary Resulted Blood Peripheral NO GROWTH IN 2 DAYS 09/15/16 17:30 Anaerobic Blood Culture - Preliminary Resulted Blood Peripheral NO GROWTH IN 2 DAYS 09/15/16 17:45 Aerobic Blood Culture - Preliminary Resulted Blood Peripheral NO GROWTH IN 2 DAYS 09/15/16 17:45 Anaerobic Blood Culture - Preliminary Resulted Blood Peripheral NO GROWTH IN 2 DAYS 09/15/16 17:55 Urine Culture - Final Complete Urine Clean Catch Klebsiella Pneumoniae Esbl Pos 09/17/16 16:15 Urine Culture Received Urine Catheterized Urine Pending Imaging Last 72 hours Impressions Chest X-Ray 09/15/16 1700 Signed Impressions: Service Date/Time: Thursday, September 15, 2016 17:27 - CONCLUSION: 1. There are chronic interstitial changes within the pulmonary parenchyma. Stable compared to prior exam. Leeroy Mensah MD Physical Exam GENERAL: awake and alert, not in any respiratory distress at the time my exam. He is on nasal O2. SKIN: Warm and dry. No generalized rash. HEENT: [place] conjunctivae. No scleral icterus. No injection or drainage. Moist oral mucosa, he wears upper dentures. NECK: Trachea midline. No JVD or lymphadenopathy. Supple, nontender, no meningeal signs. CARDIOVASCULAR: Regular rate and rhythm without murmurs, gallops, or rubs. RESPIRATORY: Clear to auscultation. Breath sounds equal bilaterally. Occasional wheezing on the right side. GASTROINTESTINAL: Abdomen soft, non-tender, nondistended. Bowel sounds are present and normoactive. No hepato-splenomegaly, or palpable masses. No guarding. MUSCULOSKELETAL: Extremities without clubbing, cyanosis, or edema. No joint effusion, or edema noted. No calf tenderness. Negative Homans sign bilaterally. NEUROLOGICAL: Grossly non-focal PSYCH: Normal affect, calm and cooperative LINE: PIV with no evidence of infection : Lipscomb cath in place, urine clear with some sediment BACK: No CVA tenderness, has resolving ecchymoses in the L flank Assessment & Plan Remarks IMPRESSION COPD with acute excaerbation, better - no PNA on his CXR UTI, has indwelling lipscomb - no fever or chills - likely had blockage due to sediment - C/S with Klebsiella ESBL (+) Episode of C diff colitis during last admission RECOMMENDATION Follow C/S Continue INvanz for now - await new C/S and decide on Abx Monitor for diarrhea Continue Lactinex Rx COPD Monitor progress Colette Link MD Sep 18, 2016 10:07
--- NOTE | 2016-09-18 15:08 | HHI.PR ---
Subjective Remarks The patient was seen earlier today. Says she still has pain. Had a BM. No n/v/d/ c. No fevers or chills overnight Objective Vitals Vital Signs Date Time Temp Pulse Resp B/P Pulse Ox O2 Delivery O2 Flow Rate FiO2 09/18/16 13:18 18 09/18/16 12:59 96.4 88 18 157/88 96 09/18/16 08:47 95 Nasal Cannula 2.00 09/18/16 08:00 96.7 72 18 160/92 96 09/18/16 04:00 97.8 99 18 151/83 95 09/18/16 00:39 78 157/78 09/18/16 00:29 160/76 09/18/16 00:00 97.1 80 18 162/93 94 09/17/16 20:00 97.9 79 16 167/87 95 09/17/16 15:16 98.1 84 22 148/77 94 I/O 09/17/16 09/17/16 09/17/16 09/18/16 09/18/16 09/18/16 07:00 15:00 23:00 07:00 15:00 23:00 Intake Total 720 ml 480 ml Output Total 600 ml 350 ml 875 ml 800 ml Balance -600 ml -350 ml -155 ml -320 ml Intake Oral 720 ml 480 ml Output Urine Total 600 ml 350 ml 875 ml 800 ml # Voids 1 # Bowel Movements 0 1 3 1 Result Diagram: 09/16/16 0515 09/16/16 0515 Imaging Last Impressions Chest X-Ray 09/15/16 1700 Signed Impressions: Service Date/Time: Thursday, September 15, 2016 17:27 - CONCLUSION: 1. There are chronic interstitial changes within the pulmonary parenchyma. Stable compared to prior exam. Leeroy Mensah MD Objective Remarks GENERAL: Well-developed, well-nourished male patient in [facility]. SKIN: Warm and dry. HEAD: Atraumatic. Normocephalic. NECK: Trachea midline. CARDIOVASCULAR: Regular rate and rhythm. No murmur. RESPIRATORY: No accessory muscle use. Diminished breath sounds at bilateral bases, and expiratory wheezing in upper airways. Breath sounds equal bilaterally. GASTROINTESTINAL: Abdomen soft, non-tender, nondistended. GENITOURINARY: Mendoza catheter in place, no surrounding discharge/bleeding; urine clear yellow. MUSCULOSKELETAL: 1+ bilateral lower extremity edema. No obvious deformities. NEUROLOGICAL: Awake and alert. No obvious cranial nerve deficits. Motor grossly within normal limits. Normal speech. PSYCHIATRIC: Appropriate mood and affect; insight and judgment normal. Date of Insertion: Sep 15, 2016 A/P Problem List: (1) COPD (chronic obstructive pulmonary disease) ICD Code: J44.9 Status: Chronic (2) Hypokalemia ICD Code: E87.6 Status: Acute (3) Indwelling catheter present on admission ICD Code: Z93.6 Status: Acute (4) UTI (urinary tract infection) ICD Code: N39.0 Status: Acute (5) HTN (hypertension) ICD Code: I10 Status: Chronic Assessment and Plan 61-year-old male with a PMH of COPD, Depression, Chronic Pain, HTN and Neurogenic Bladder w/ Indwelling Mendoza who came to the ER w/ complaints of SOB and burning w/ urination x2 days. Acute on Chronic Respiratory Failure secondary to COPD Exacerbation: on home 2L O2. S/p Solu-Medrol and DuoNeb w/ some improvement. CXR w/ no acute findings, images reviewed by me. Continue IV Solu-Medrol 40mg q6h, DuoNeb q4h andre and q2h prn, Symbicort bid, Mucinex. Hypokalemia: K+ 2.9. S/p replacement in ER, repeat K 4.0. Resolved. Neurogenic Bladder/Obstruction with Indwelling Mendoza: replaced Mendoza 09/15 secondary to infection. Patient still with bladder spasms. Started on oxybutynin 5mg bid scheduled. Complicated UTI in a male with indwelling Mendoza as above: U/a w/ UTI, Afebrile , WBC 12.2K. DC IV Rocephin. Urine Cx with Klebsiella pseu ESBL , start invanz IV , consuilt ID specialist. HTN: Not on antihypertensives. BP 180's on arrival, currently 160's systolic. Monitor. Added IV Vasotec prn SBP >160. Control pain. Consider starting lisinopril if still elevated despite pain control. BP improving. DVT Prophylaxis: SCD/Teds. DC when improved and cleared by consultants Problem Qualifiers (1) COPD (chronic obstructive pulmonary disease): Qualified Code: J42 - Chronic bronchitis, unspecified chronic bronchitis type Cosma,Tabatha MD Sep 18, 2016 15:08
[2016-09-18] MEDS: ERTAPENEM INJ 1,000 MG in SODIUM CHLORIDE 0.9% INJ 100 ML IV SCH (16:03)
[2016-09-18] MEDS ORDERED: REMOVE OLD PATCH T-DERMAL SCH (21:00)
[2016-09-18] MEDS: fentaNYL 75 MCG/HR PATCH TD SCH (21:29)
[2016-09-19] VITALS (9 sets, daily range): BP systolic 145–177; BP diastolic 78–101; PULSE 74–98; RESP 18–20; TEMP 96.3–96.9; O2SAT 94–98
[2016-09-19] MEDS: methylPREDNISolone SOD SUCC 40 MG/1 ML VIAL IV PUSH SCH ×2 (05:24→12:03)
[2016-09-19] MEDS: ENALAPRILAT 1.25 MG/ML VIAL IV PUSH PRN (08:24)
[2016-09-19] MEDS: BUDESONIDE-FORMOTEROL 160/4.5 MCG INHALER INH SCH ×2 (08:27→19:51)
[2016-09-19] MEDS: OXYBUTYNIN CHLORIDE 5 MG TAB PO SCH ×2 (08:28→19:50)
[2016-09-19] MEDS: DULoxetine HCl DR 20 MG CAP PO SCH (08:28)
[2016-09-19] MEDS: LACTOBACILLUS ACIDOPHILUS TAB PO SCH ×3 (08:29→17:41)
[2016-09-19] MEDS: guaiFENesin E.R. 600 MG TAB PO SCH ×2 (08:29→19:50)
[2016-09-19] MEDS: DOCUSATE SODIUM 50 MG/SENNA 8.6 MG TAB PO SCH ×2 (08:29→19:50)
[2016-09-19] MEDS: SODIUM CHLORIDE 0.9% FLUSH 5 ML FLUSH FLUSH SCH ×2 (08:29→19:51)
[2016-09-19] MEDS: RESP: ALBUTEROL 2.5 MG/IPRATROPIUM 0.5 MG NEB (SCH) NEB ×4 (08:31→19:21)
--- NOTE | 2016-09-19 10:13 | HHI.IDPN ---
Subjective Subjective Remarks Notes reviewed Afebrile Clinically stable from ID standpoint Good sats on nasal O2 Repeat UA, pyuria better BC negative Antibiotics Invanz Lines PIV Past Medical History COPD, emphysema Hypertension GERD Previous episode of pneumonia Urinary retention History of C. difficile colitis during his last admission Past Surgical History Appendectomy Back surgery 3 for disc problem Skin grafting for gangrene of the left lower extremity Allergies: Coded Allergies: Codeine (Verified Allergy, Severe, Seizures, 09/15/16) *MDRO Multi-Drug Resistant Organism (Verified Adverse Reaction, Unknown, ) ESBL K. pneumoniae (urine) - 09/15/16 Objective . Vital Signs Date Time Temp Pulse Resp B/P Pulse Ox O2 Delivery O2 Flow Rate FiO2 09/19/16 08:34 97 Nasal Cannula 2.00 09/19/16 08:00 96.5 74 18 177/101 98 09/19/16 04:00 96.9 80 18 169/98 96 09/19/16 00:00 96.3 92 18 156/78 94 09/18/16 21:10 94 Nasal Cannula 2.00 09/18/16 20:00 96.6 93 18 162/86 96 09/18/16 18:20 18 09/18/16 16:33 97.8 90 18 179/89 96 09/18/16 12:59 96.4 88 18 157/88 96 09/18/16 09/18/16 09/19/16 15:00 23:00 07:00 Intake Total 840 ml 580 ml 240 ml Output Total 800 ml 300 ml 300 ml Balance 40 ml 280 ml -60 ml Intake Oral 840 ml 480 ml 240 ml IV Total 100 ml Output Urine Total 800 ml 300 ml 300 ml # Bowel Movements 1 1 1 . Microbiology Date/Time Procedure Status Source Growth 09/17/16 16:15 Urine Culture - Preliminary Resulted Urine Catheterized Urine IMMATURE GROWTH - REINCUBATE Imaging Last 72 hours Impressions Chest X-Ray 09/15/16 1700 Signed Impressions: Service Date/Time: Thursday, September 15, 2016 17:27 - CONCLUSION: 1. There are chronic interstitial changes within the pulmonary parenchyma. Stable compared to prior exam. Leeroy Mensah MD Physical Exam GENERAL: awake and alert, not in any respiratory distress at the time my exam. He is on nasal O2. SKIN: Warm and dry. No generalized rash. HEENT: [place] conjunctivae. No scleral icterus. No injection or drainage. Moist oral mucosa, he wears upper dentures. NECK: Trachea midline. No JVD or lymphadenopathy. Supple, nontender, no meningeal signs. CARDIOVASCULAR: Regular rate and rhythm without murmurs, gallops, or rubs. RESPIRATORY: Clear to auscultation. Breath sounds equal bilaterally. Occasional wheezing on the right side. GASTROINTESTINAL: Abdomen soft, non-tender, nondistended. Bowel sounds are present and normoactive. No hepato-splenomegaly, or palpable masses. No guarding. MUSCULOSKELETAL: Extremities without clubbing, cyanosis, or edema. No joint effusion, or edema noted. No calf tenderness. Negative Homans sign bilaterally. NEUROLOGICAL: Grossly non-focal PSYCH: Normal affect, calm and cooperative LINE: PIV with no evidence of infection : Lipscomb cath in place, urine clear with some sediment BACK: No CVA tenderness, has resolving ecchymoses in the L flank Assessment & Plan Remarks IMPRESSION COPD with acute excaerbation, better - no PNA on his CXR UTI, has indwelling lipscomb - no fever or chills - likely had blockage due to sediment - C/S with Klebsiella ESBL (+) Episode of C diff colitis during last admission RECOMMENDATION Change to po Cipro Give 10 days of oral Abx Give lactinex while on Abx Patient is clinically doing well from ID standpoint I will be available prColette Avila MD Sep 19, 2016 10:13
[2016-09-19] MEDS: CIPROFLOXACIN 750 MG TAB PO SCH (12:02)
[2016-09-19] MEDS: MORPHINE SULFATE 4 MG/ML INJ IV PRN ×3 (14:43→19:50)
[2016-09-19] MEDS: predniSONE 20 MG TAB PO SCH (19:50)
--- NOTE | 2016-09-19 23:25 | HHI.PR ---
Subjective Remarks patient seen this morning around 11 AM. Patient says he feels better. Reports shortness of breath is much better. He continues to report irritation with Mendoza. Stable from yesterday. Objective Vital Signs Date Time Temp Pulse Resp B/P Pulse Ox O2 Delivery O2 Flow Rate FiO2 09/19/16 20:14 16 09/19/16 20:00 96.6 98 18 157/84 95 09/19/16 19:22 96 Nasal Cannula 2.00 09/19/16 16:03 96.9 84 18 153/94 95 09/19/16 12:00 96.4 88 20 145/88 96 09/19/16 10:00 95 164/88 09/19/16 08:34 97 Nasal Cannula 2.00 09/19/16 08:00 96.5 74 18 177/101 98 09/19/16 04:00 96.9 80 18 169/98 96 09/19/16 00:00 96.3 92 18 156/78 94 I/O 09/18/16 09/18/16 09/18/16 09/19/16 09/19/16 09/19/16 07:00 15:00 23:00 07:00 15:00 23:00 Intake Total 720 ml 840 ml 580 ml 240 ml 960 ml 1200 ml Output Total 875 ml 800 ml 300 ml 300 ml 724 ml 200 ml Balance -155 ml 40 ml 280 ml -60 ml 236 ml 1000 ml Intake Oral 720 ml 840 ml 480 ml 240 ml 960 ml 1200 ml IV Total 100 ml Output Urine Total 875 ml 800 ml 300 ml 300 ml 720 ml 200 ml Stool Total 4 ml # Voids 1 # Bowel Movements 3 1 1 1 1 2 Result Diagram: 09/16/1615 09/16/1615 Objective Remarks GENERAL: apatient sitting up in bed. Appears comfortable. Alert. SKIN: Warm and dry. HEAD: Normocephalic. EYES: No scleral icterus. No injection or drainage. NECK: Supple, trachea midline. No JVD or lymphadenopathy. CARDIOVASCULAR: Regular rate and rhythm without murmurs, gallops, or rubs. RESPIRATORY: Breath sounds equal bilaterally. No accessory muscle use. GASTROINTESTINAL: Abdomen soft, non-tender, nondistended. MUSCULOSKELETAL: No cyanosis, or edema. BACK: Nontender without obvious deformity. No CVA tenderness. A/P Assessment and Plan 09/19/16 Switch to by mouth prednisone. Difficult discharge. Homeless. 61-year-old male with a PMH of COPD, Depression, Chronic Pain, HTN and Neurogenic Bladder w/ Indwelling Mendoza who came to the ER w/ complaints of SOB and burning w/ urination x2 days. Acute on Chronic Respiratory Failure secondary to COPD Exacerbation: on home 2L O2. S/p Solu-Medrol and DuoNeb w/ some improvement. CXR w/ no acute findings, images reviewed by me. Continue IV Solu-Medrol 40mg q6h, DuoNeb q4h andre and q2h prn, Symbicort bid, Mucinex. Hypokalemia: K+ 2.9. S/p replacement in ER, repeat K 4.0. Resolved. Neurogenic Bladder/Obstruction with Indwelling Mendoza: replaced Mendoza 09/15 secondary to infection. Patient still with bladder spasms. Started on oxybutynin 5mg bid scheduled. Complicated UTI in a male with indwelling Mendoza as above: U/a w/ UTI, Afebrile , WBC 12.2K. DC IV Rocephin. Urine Cx with Klebsiella pseu ESBL , start invanz IV , consuilt ID specialist. HTN: Not on antihypertensives. BP 180's on arrival, currently 160's systolic. Monitor. Added IV Vasotec prn SBP >160. Control pain. Consider starting lisinopril if still elevated despite pain control. BP improving. DVT Prophylaxis: SCD/Teds. Jacek Arshad MD Sep 19, 2016 23:25
[2016-09-20] VITALS (7 sets, daily range): BP systolic 145–187; BP diastolic 88–97; PULSE 81–97; RESP 18–20; TEMP 96.5–97.5; O2SAT 94–97
[2016-09-20] MEDS: MORPHINE SULFATE 4 MG/ML INJ IV PRN ×4 (00:28→19:43)
[2016-09-20] MEDS: CIPROFLOXACIN 750 MG TAB PO SCH ×2 (00:28→13:29)
[2016-09-20] MEDS: guaiFENesin E.R. 600 MG TAB PO SCH ×2 (08:55→21:57)
[2016-09-20] MEDS: OXYBUTYNIN CHLORIDE 5 MG TAB PO SCH ×3 (08:55→18:44)
[2016-09-20] MEDS: DULoxetine HCl DR 20 MG CAP PO SCH (08:55)
[2016-09-20] MEDS: LACTOBACILLUS ACIDOPHILUS TAB PO SCH ×3 (08:55→18:43)
[2016-09-20] MEDS: predniSONE 20 MG TAB PO SCH ×2 (08:56→21:57)
[2016-09-20] MEDS: DOCUSATE SODIUM 50 MG/SENNA 8.6 MG TAB PO SCH ×2 (08:56→21:00)
[2016-09-20] MEDS: ENALAPRILAT 1.25 MG/ML VIAL IV PUSH PRN (08:57)
[2016-09-20] MEDS: BUDESONIDE-FORMOTEROL 160/4.5 MCG INHALER INH SCH ×2 (08:58→21:56)
[2016-09-20] MEDS: SODIUM CHLORIDE 0.9% FLUSH 5 ML FLUSH FLUSH SCH ×2 (08:58→21:58)
--- NOTE | 2016-09-20 11:55 | HHI.PR ---
Subjective Remarks denies any pain, baseline shortness of breath- states 02 dependent, no cough Objective Vitals Vital Signs Date Time Temp Pulse Resp B/P Pulse Ox O2 Delivery O2 Flow Rate FiO2 09/20/16 11:05 97.0 84 20 155/89 96 09/20/16 07:50 97.5 94 20 187/97 94 09/20/16 04:00 96.7 84 18 157/89 97 09/20/16 00:52 16 09/20/16 00:00 96.9 97 18 153/97 96 09/19/16 20:00 96.6 98 18 157/84 95 09/19/16 19:22 96 Nasal Cannula 2.00 09/19/16 16:03 96.9 84 18 153/94 95 09/19/16 12:00 96.4 88 20 145/88 96 I/O 09/19/16 09/19/16 09/19/16 09/20/16 09/20/16 09/20/16 07:00 15:00 23:00 07:00 15:00 23:00 Intake Total 240 ml 960 ml 1200 ml 240 ml Output Total 300 ml 724 ml 200 ml 400 ml Balance -60 ml 236 ml 1000 ml -160 ml Intake Oral 240 ml 960 ml 1200 ml 240 ml Output Urine Total 300 ml 720 ml 200 ml 400 ml Stool Total 4 ml # Bowel Movements 1 1 2 1 Result Diagram: 09/16/16 0515 09/16/16 0515 Imaging Last Impressions Chest X-Ray 09/15/16 1700 Signed Impressions: Service Date/Time: Thursday, September 15, 2016 17:27 - CONCLUSION: 1. There are chronic interstitial changes within the pulmonary parenchyma. Stable compared to prior exam. Leeroy Mensah MD Objective Remarks awake and alert, oriented x 3 anicteric lungs decreased breath sounds, no rales or wheezes regular rhythm abdomen soft, nontender lipscomb in place, no penile swelling extremities no edema Urinary Catheter: Yes Date of Insertion: Sep 15, 2016 A/P Problem List: (1) COPD (chronic obstructive pulmonary disease) ICD Code: J44.9 Status: Chronic (2) Hypokalemia ICD Code: E87.6 Status: Acute (3) Indwelling catheter present on admission ICD Code: Z93.6 Status: Acute (4) UTI (urinary tract infection) ICD Code: N39.0 Status: Acute (5) HTN (hypertension) ICD Code: I10 Status: Chronic Assessment and Plan 61-year-old male with a PMH of COPD, Depression, Chronic Pain, HTN and Neurogenic Bladder w/ Indwelling Lipscomb who came to the ER w/ complaints of SOB and burning w/ urination x2 days. Acute on Chronic Respiratory Failure secondary to COPD Exacerbation: on home 2L O2. S/p Solu-Medrol and DuoNeb w/ some improvement. CXR w/ no acute findings, images reviewed by me. DuoNeb q4h andre and q2h prn, Symbicort bid, Mucinex. changed to po prednisone 20 mg po bid 09/19- gradual taper Hypokalemia: K+ 2.9. S/p replacement in ER, repeat K 4.0. Resolved. Obstruction with Indwelling Lipscomb: replaced Lipscomb 09/15 secondary to infection. Patient still with bladder spasms. Started on oxybutynin 5mg bid scheduled. - increase to tid Start Flomax and DC in 3 days- voiding trial will consult Urology service- seen by them last admission- Dec Complicated UTI in a male with indwelling Lipscomb as above: U/a w/ UTI, Afebrile , WBC 12.2K. DC IV Rocephin. Urine Cx with Klebsiella pseu ESBL , Ciprofloxacin 500 mg po bid till 09/29 HTN: Start patient on meds- Not on antihypertensives. BP 180's on arrival, currently 160's systolic. Monitor. Added IV Vasotec prn SBP >160. Control pain. start CCB- Procardia 30 mg XL daily DVT Prophylaxis: SCD/Teds.encourage ambulation CM - DC planning Problem Qualifiers (1) COPD (chronic obstructive pulmonary disease): Qualified Code: J42 - Chronic bronchitis, unspecified chronic bronchitis type Mike Ojeda MD Sep 20, 2016 11:55 Mike Ojeda MD Sep 20, 2016 11:55
[2016-09-20] MEDS: FLUCONAZOLE 100 MG TAB PO SCH (15:18)
--- NOTE | 2016-09-20 15:24 | PD.CONS ---
HPI Service Urology Consult Requested By Reason for Consult Urinary retention Primary Care Physician No Primary Care Physician Diagnosis: (1) COPD (chronic obstructive pulmonary disease) ICD Code: J44.9 (2) Hypokalemia ICD Code: E87.6 (3) Indwelling catheter present on admission ICD Code: Z93.6 (4) UTI (urinary tract infection) ICD Code: N39.0 (5) HTN (hypertension) ICD Code: I10 History of Present Illness 61yo male with history of COPD and urinary retention seen in consultation for persistent urinary retention. Patient reports he has had a lipscomb catheter in place for approx two months. It has been exchanged, with the most recent exchange during this hospital stay. He reports prior to the catheter he was having increasing difficulty in voiding, with slow weak stream, straining, and incomplete emptying. He denies any history of hematuria, but reports some after catheter placement. He was previously on Flomax, and has recently resumed while inpatient. No fevers. Review of Systems ROS Limitations: Clinical Condition Constitutional: DENIES: Fever Eyes: DENIES: Blurred vision Ears, nose, mouth, throat: DENIES: Hearing loss Respiratory: DENIES: Cough Cardiovascular: DENIES: Chest pain Gastrointestinal: COMPLAINS OF: Abdominal pain Genitourinary: DENIES: Hematuria Musculoskeletal: DENIES: Back pain Integumentary: DENIES: Rash Hematologic/lymphatic: DENIES: Lymphadenopathy Neurologic: DENIES: Headache Psychiatric: DENIES: Anxiety Past Family Social History Past Medical History COPD, emphysema Hypertension GERD Previous episode of pneumonia Urinary retention History of C. difficile colitis during his last admission Past Surgical History Appendectomy Back surgery 3 for disc problem Skin grafting for gangrene of the left lower extremity Reported Medications Reported Meds & Active Scripts Active Cymbalta DR (Duloxetine HCl) 20 Mg Capdr 20 Mg PO DAILY Duragesic Patch 72 HR (Fentanyl) 75 Mcg/Hr Patch 1 Patch TD Q3D Allergies: Coded Allergies: Codeine (Verified Allergy, Severe, Seizures, 09/15/16) *MDRO Multi-Drug Resistant Organism (Verified Adverse Reaction, Unknown, ) ESBL K. pneumoniae (urine) - 09/15/16 Active Ordered Medications Current Medications Medications (Trade) Dose Ordered Sig/Joselin Route Start Time Stop Time Status Last Admin (Mucinex Er) 600 mg BID PO 09/15/16 21:00 09/20/16 08:55 (Symbicort 160-4.5 Inh) 2 puff Q12HR INH 09/15/16 21:00 09/20/16 08:58 (NS Flush) 2 ml UNSCH PRN FLUSH 09/15/16 19:00 (NS Flush) 2 ml BID FLUSH 09/15/16 21:00 09/20/16 08:58 (Zofran Inj) 4 mg Q6H PRN IVP 09/15/16 19:00 (Dulcolax Supp) 10 mg DAILY PRN MO 09/15/16 19:00 (Tylenol) 650 mg Q6H PRN PO 09/15/16 19:00 (Cymbalta Dr) 20 mg DAILY PO 09/16/16 09:00 09/20/16 08:55 (Duragesic 75 Mcg Patch.72 Hr) 1 patch Q3D TD 09/15/16 21:00 09/18/16 21:29 Miscellaneous Information 1 Q3D T-DERMAL 09/18/16 21:00 09/18/16 21:00 (Vasotec Inj) 1.25 mg Q6H PRN IV PUSH 09/16/16 10:45 09/20/16 08:57 (Kori-Colace) 2 tab BID PO 09/17/16 09:30 09/20/16 08:56 (Lactinex) 1 tab TID PO 09/17/16 18:00 09/20/16 13:29 (Cipro) 750 mg Q12H PO 09/19/16 12:00 09/29/16 11:59 09/20/16 13:29 (Deltasone) 20 mg BID PO 09/19/16 21:00 09/20/16 08:56 (Morphine Inj) 1 mg Q4HR PRN IV 09/20/16 16:00 (Flomax) 0.4 mg DAILY@21 PO 09/20/16 21:00 (Ditropan) 5 mg TID PO 09/20/16 13:00 09/20/16 13:00 (Procardia Xl) 30 mg DAILY PO 09/21/16 09:00 (Diflucan) 100 mg Q24H PO 09/20/16 15:00 09/27/16 14:59 Family History Family history reviewed and noncontributory to present illness Social History Smoker quit in 2010, smoked 2 packs per day for 45 years No ETOH, quit in Denies illicit drug use Physical Exam Vital Signs Vital Signs Date Time Temp Pulse Resp B/P Pulse Ox O2 Delivery O2 Flow Rate FiO2 09/20/16 11:05 97.0 84 20 155/89 96 09/20/16 07:56 95 Nasal Cannula 2.00 09/20/16 07:50 97.5 94 20 187/97 94 09/20/16 04:00 96.7 84 18 157/89 97 09/20/16 00:52 16 09/20/16 00:00 96.9 97 18 153/97 96 09/19/16 20:00 96.6 98 18 157/84 95 09/19/16 19:22 96 Nasal Cannula 2.00 09/19/16 16:03 96.9 84 18 153/94 95 Physical Exam GENERAL: This is a well-nourished, well-developed patient, in no apparent distress. SKIN: No rashes, ecchymoses or lesions. Cool and dry. HEAD: Atraumatic. Normocephalic. EYES: Extraocular motions intact. No scleral icterus. No injection or drainage. ENT: Nose without bleeding, purulent drainage. Airway patent. NECK: Trachea midline. CARDIOVASCULAR: Normal extremity perfusion and pulses RESPIRATORY: Nonlabored, Equal chest rise. GASTROINTESTINAL: Abdomen soft, non-tender, nondistended. : 16Fr lipscomb catheter in place, clear yellow urine. MUSCULOSKELETAL: Extremities without clubbing, cyanosis, or edema. NEUROLOGICAL: Awake and alert. Motor and sensory grossly within normal limits. Normal speech. Laboratory Date/Time Procedure Status Source Growth 09/17/16 16:15 Urine Culture - Final Complete Urine Catheterized Urine Citrobacter Amalonaticus Teena Albicans 09/15/16 17:45 Aerobic Blood Culture - Final Complete Blood Peripheral NO GROWTH IN 5 DAYS 09/15/16 17:45 Anaerobic Blood Culture - Final Complete Blood Peripheral NO GROWTH IN 5 DAYS Result Diagram: 09/16/16 0515 09/16/1615 Assessment and Plan Problem List: (1) UTI (urinary tract infection) ICD Code: N39.0 Status: Acute (2) Indwelling catheter present on admission ICD Code: Z93.6 Status: Acute Assessment and Plan -Continue flomax therapy as well as abx for UTI -Patient has failed multiple voiding trials in the past -Recommend leaving catheter in place with close urology follow-up upon discharge. He will need further evaluation regarding his retention, likely with cystoscopy and may require TURP to alleviate the bladder outlet obstruction. -Please call with questions Problem Qualifiers (1) COPD (chronic obstructive pulmonary disease): Qualified Code: J42 - Chronic bronchitis, unspecified chronic bronchitis type Maico Bray MD Sep 20, 2016 15:24
[2016-09-20] MEDS ORDERED: TAMSULOSIN HCL 0.4 MG CAP PO SCH (21:00)
[2016-09-21] VITALS: BP 150/76; PULSE 88; RESP 18; TEMP 97.1; O2SAT 98
[2016-09-21] MEDS: CIPROFLOXACIN 750 MG TAB PO SCH ×2 (00:40→11:23)
[2016-09-21] MEDS: MORPHINE SULFATE 4 MG/ML INJ IV PRN ×2 (00:46→11:23)
[2016-09-21 04:00] VITALS: BP 145/86; PULSE 69; RESP 16; TEMP 97; O2SAT 97
[2016-09-21 07:55] VITALS: BP 139/85; PULSE 84; RESP 20; TEMP 96.8; O2SAT 96
--- NOTE | 2016-09-21 08:32 | HHI.PR ---
Subjective Remarks patient no complains ready to go home just want to make sure that home health care comes to his home for lipscomb up and getting around with lipscomb- draining clear urine, no complains of spasms states forms soft formed, non bloody Objective Vitals Vital Signs Date Time Temp Pulse Resp B/P Pulse Ox O2 Delivery O2 Flow Rate FiO2 09/21/16 04:00 97.0 69 16 145/86 97 09/21/16 00:51 16 09/21/16 00:00 97.1 88 18 150/76 98 09/20/16 20:00 97.4 81 18 151/88 97 09/20/16 17:48 Nasal Cannula 2.00 09/20/16 15:25 96.5 84 20 145/88 95 09/20/16 11:05 97.0 84 20 155/89 96 I/O 09/20/16 09/20/16 09/20/16 09/21/16 09/21/16 09/21/16 07:00 15:00 23:00 07:00 15:00 23:00 Intake Total 240 ml 402 ml 240 ml 480 ml Output Total 400 ml 802 ml 350 ml 750 ml Balance -160 ml -400 ml -110 ml -270 ml Intake Oral 240 ml 402 ml 240 ml 480 ml Output Urine Total 400 ml 800 ml 350 ml 750 ml Stool Total 2 ml # Bowel Movements 1 Imaging Last Impressions Chest X-Ray 09/15/16 1700 Signed Impressions: Service Date/Time: Thursday, September 15, 2016 17:27 - CONCLUSION: 1. There are chronic interstitial changes within the pulmonary parenchyma. Stable compared to prior exam. Leeroy Mensah MD Objective Remarks awake and alert, oriented x 3 anicteric lungs decreased breath sounds, no rales or wheezes regular rhythm abdomen soft, nontender lipscomb in place, no penile swelling extremities no edema Date of Insertion: Sep 15, 2016 A/P Problem List: (1) COPD (chronic obstructive pulmonary disease) ICD Code: J44.9 Status: Chronic (2) Hypokalemia ICD Code: E87.6 Status: Acute (3) Indwelling catheter present on admission ICD Code: Z93.6 Status: Acute (4) UTI (urinary tract infection) ICD Code: N39.0 Status: Acute (5) HTN (hypertension) ICD Code: I10 Status: Chronic Assessment and Plan 61-year-old male with a PMH of COPD, Depression, Chronic Pain, HTN and Neurogenic Bladder w/ Indwelling Lipscomb who came to the ER w/ complaints of SOB and burning w/ urination x2 days. Acute on Chronic Respiratory Failure secondary to COPD Exacerbation: on home 2L O2. S/p Solu-Medrol and DuoNeb w/ some improvement. CXR w/ no acute findings, images reviewed by me. DuoNeb q4h andre and q2h prn, Symbicort bid, Mucinex. changed to po prednisone 20 mg po bid 09/19- taper to 10 mg po bid x 3 days then DC Hypokalemia: K+ 2.9. S/p replacement in ER, repeat K 4.0. Resolved. Obstruction with Indwelling Lpiscomb: replaced Lipscomb 09/15 secondary to infection. Started on oxybutynin 5mg bid scheduled. - increase to tid Start Flomax and DC in 3 days- seen by Urologist- DC home with lipscomb and OP ff up with Urology with urodynamics Complicated UTI in a male with indwelling Lipscomb as above: U/a w/ UTI, Afebrile , WBC 12.2K. DC IV Rocephin. Urine Cx with Klebsiella pseu ESBL , Candiduria Ciprofloxacin 500 mg po bid till 09/29 Diflucan till 09/27 HTN: Start patient on meds- Not on antihypertensives. BP 180's on arrival, currently 160's systolic. Monitor. Added IV Vasotec prn SBP >160. Control pain. CCB- Procardia 30 mg XL daily DVT Prophylaxis: SCD/Teds.encourage ambulation CM - d/w - [facility] referral specifically for lipscomb care and supervision and visits Problem Qualifiers (1) COPD (chronic obstructive pulmonary disease): Qualified Code: J42 - Chronic bronchitis, unspecified chronic bronchitis type Mike Ojeda MD Sep 21, 2016 08:32
--- NOTE | 2016-09-21 08:33 | HHI.FF ---
Face to Face Verification Diagnosis: (1) Obstructive uropathy (2) Lipscomb catheter in place (3) UTI (urinary tract infection) Home Health Nursing Order: Signs/symptoms of disease process Nursing assessment with vital signs Lipscomb catheter maintenance Instructions: patient needs lipscomb catheter education to prevent readmission I have seen patient Rogelio Roberts on 09/21/16. My clinical findings support the need for the requested home health care services because: Ltd mobility - disease progression Infection w/ risk of complications I certify that my clinical findings support that this patient is homebound because: Post-op weakness Mike Ojeda MD Sep 21, 2016 08:33
[2016-09-21] MEDS ORDERED: NIFE30TA8 PO (08:49)
[2016-09-21] MEDS ORDERED: PRED20 PO (08:49)
[2016-09-21] MEDS ORDERED: LACT PO (08:49)
[2016-09-21] MEDS ORDERED: OXYB5TAB10 PO (08:49)
[2016-09-21] MEDS ORDERED: CIPR750T2 PO (08:49)
[2016-09-21] MEDS ORDERED: TAMS5CAP PO (08:49)
[2016-09-21] MEDS ORDERED: DIFL100T PO (08:49)
[2016-09-21] MEDS ORDERED: SYMB160A INH (08:49)
--- NOTE | 2016-09-21 08:52 | HHI.DS ---
Discharge Summary Admission Date Sep 17, 2016 at 10:45 Discharge Date: Sep 21, 2016 Admitting Diagnosis cystitis with urinary lipscomb, COPD exacerbation (1) COPD (chronic obstructive pulmonary disease) ICD Code: J44.9 Diagnosis: Principal (2) Indwelling catheter present on admission ICD Code: Z93.6 Diagnosis: Secondary (3) Hypokalemia ICD Code: E87.6 Diagnosis: Secondary (4) UTI (urinary tract infection) ICD Code: N39.0 Diagnosis: Secondary (5) HTN (hypertension) ICD Code: I10 Diagnosis: Secondary Procedures none Brief History - From Admission This is a 61-year-old male with a PMH of COPD, Depression, Chronic Pain, HTN and Neurogenic Bladder w/ Indwelling Lipscomb who came to the ER w/ complaints of SOB and burning w/ urination x2 days. Denies fever, chills or cough. Has been using home MDI/Nebulizer w/ minimal relief. On arrival, BP 189/106, HR 83, O2 sat 97% on RA, Afebrile. Currently BP 136/98, HR 87. WBC 12.2. K+ 2.9. Lactic Acid 1.7. Troponin negative. UA positive for UTI. CXR with chronic interstitial changes, no acute findings. S/p Solu-Medrol and DuoNeb w/ some relief. S/p Rocephin in ER. Imaging Last Impressions Chest X-Ray 09/15/16 1700 Signed Impressions: Service Date/Time: Thursday, September 15, 2016 17:27 - CONCLUSION: 1. There are chronic interstitial changes within the pulmonary parenchyma. Stable compared to prior exam. Leeroy Mensah MD PE at Discharge awake and alert, oriented x 3 anicteric lungs decreased breath sounds, no rales or wheezes regular rhythm abdomen soft, nontender lipscomb in place, no penile swelling extremities no edema Pt update on day of discharge afebrile, no wheezes, lungs clear lipscomb draining clear urine up and ambulatin no comlains of pain, bladder spasms Hospital Course 61-year-old male with a PMH of COPD, Depression, Chronic Pain, HTN and Neurogenic Bladder w/ Indwelling Lipscomb who came to the ER w/ complaints of SOB and burning w/ urination x2 days. Acute on Chronic Respiratory Failure secondary to COPD Exacerbation: on home 2L O2. S/p Solu-Medrol and DuoNeb w/ some improvement. CXR w/ no acute findings, images reviewed by me. DuoNeb q4h andre and q2h prn, Symbicort bid, Mucinex. changed to po prednisone 20 mg po bid 09/19- taper to 10 mg po bid x 3 days then DC Hypokalemia: K+ 2.9. S/p replacement in ER, repeat K 4.0. Resolved. Obstruction with Indwelling Lipscomb: replaced Lipscomb 09/15 secondary to infection. Started on oxybutynin 5mg bid scheduled. - increase to tid Start Flomax and DC in 3 days- seen by Urologist- DC home with lipscomb and OP ff up with Urology with urodynamics Complicated UTI in a male with indwelling Lipscomb as above: U/a w/ UTI, Afebrile , WBC 12.2K. DC IV Rocephin. Urine Cx with Klebsiella pseu ESBL , Candiduria Ciprofloxacin 500 mg po bid till 09/29 Diflucan till 09/27 HTN: Start patient on meds- Not on antihypertensives. BP 180's on arrival, currently 160's systolic. Monitor. Added IV Vasotec prn SBP >160. Control pain. CCB- Procardia 30 mg XL daily DVT Prophylaxis: SCD/Teds.encourage ambulation CM - d/w - Home [facility] referral specifically for lipscomb care and supervision and visits Pt Condition on Discharge: Stable Discharge Disposition: Disch w/ Home Health Serv Discharge Time: <= 30 minutes Discharge Instructions DIET: Follow Instructions for: Heart Healthy Diet Speech Therapy-Diet Recommends: Regular Activities you can perform: Weight Bearing as Pushpa Activities to Avoid: Strenuous Activity Other Activity Instructions: lipscomb precautions Follow up Referrals: PCP Follow-up - 09/27/16 with [facility] - 1 Week with Maico Bray MD New Medications: Budesonide-Formoterol Inh (Symbicort Inh) 160-4.5 Mcg/Act Aero 2 PUFF INH Q12HR HAD #1 Ref 1 INHALER Ciprofloxacin (Ciprofloxacin) 750 Mg Tab 750 MG PO Q12H UTI Days 9 Ref 0 TAB Fluconazole (Diflucan) 100 Mg Tab 100 MG PO Q24H UTI Days 7 Ref 0 TAB Lactobacillus Acidophilus (Acidophilus/l-Sporogenes) 1 Tab Tab 1 TAB PO TID ABxAssDIA Days 9 Ref 0 TAB Nifedipine ER 24 HR (Nifedipine ER 24 HR) 30 Mg Tab 30 MG PO DAILY HTN Days 30 TAB Oxybutynin (Ditropan) 5 Mg Tab 5 MG PO TID URIRET Days 30 TAB Prednisone (Prednisone) 20 Mg Tab 10 MG PO BID COPD Days 3 Ref 0 TAB Tamsulosin (Flomax) 0.4 Mg Cap 0.4 MG PO DAILY@21 URINRET Days 30 CAP Continued Medications: Duloxetine DR (Cymbalta DR) 20 Mg Capdr 20 MG PO DAILY #30 Ref 2 CAP Fentanyl Patch 72 HR (Duragesic Patch 72 HR) 75 Mcg/Hr Patch 1 PATCH TD Q3D #10 Mike Ojeda MD Sep 21, 2016 08:52
[2016-09-21] MEDS ORDERED: predniSONE 10 MG TAB PO SCH (09:00)
[2016-09-21] MEDS ORDERED: NIFEdipine 30 MG SUSTAINED RELEASE TAB PO SCH ×2 (09:00)
[2016-09-21] MEDS: DULoxetine HCl DR 20 MG CAP PO SCH (09:27)
[2016-09-21] MEDS: LACTOBACILLUS ACIDOPHILUS TAB PO SCH ×2 (09:28→13:27)
[2016-09-21] MEDS: guaiFENesin E.R. 600 MG TAB PO SCH (09:28)
[2016-09-21] MEDS: SODIUM CHLORIDE 0.9% FLUSH 5 ML FLUSH FLUSH SCH (09:29)
[2016-09-21] MEDS: DOCUSATE SODIUM 50 MG/SENNA 8.6 MG TAB PO SCH (09:29)
[2016-09-21] MEDS: BUDESONIDE-FORMOTEROL 160/4.5 MCG INHALER INH SCH (09:29)
[2016-09-21] MEDS: OXYBUTYNIN CHLORIDE 5 MG TAB PO SCH ×2 (09:35→13:27)
[2016-09-21 11:30] VITALS: BP 135/88; PULSE 81; RESP 20; TEMP 97.1; O2SAT 95
[2016-09-21] MEDS: FLUCONAZOLE 100 MG TAB PO SCH (13:28)
[2016-09-21] MEDS: fentaNYL 75 MCG/HR PATCH TD SCH (15:47)
[2016-10-05] MEDS ORDERED: OXYB5TAB10 PO ×2 (14:15→14:34)
[2016-10-05] MEDS ORDERED: NIFE30TA8 PO (14:34)
[2016-10-05] MEDS ORDERED: TAMS5CAP PO (14:34)
[2016-10-05] MEDS ORDERED: DULO20 PO (14:34)
[2016-11-21] MEDS ORDERED: AMLO5TAB2 PO (07:44)
[2017-01-01] MEDS ORDERED: HYDR25TA5 PO (13:03)
== END 2016-09-21 16:03 | disposition home health service (06) | DRG 190 ==
LOC: NEPC 16:53 → NEDA 18:58 → NEPGCP 21:08 → OBSVTOIN 09-17 10:45 → HOCA 09-17 17:36
PROVIDERS: ADMIT Internal Medicine; ATTEND Internal Medicine
DX: J44.1 Chronic obstructive pulmonary disease with (acute) exacerbation (principal); J96.20 Acute and chronic respiratory failure, unspecified whether with hypoxia or hypercapnia; Z99.81 Dependence on supplemental oxygen; N39.0 Urinary tract infection, site not specified; N13.8 Other obstructive and reflux uropathy; B37.49 Other urogenital candidiasis; N31.9 Neuromuscular dysfunction of bladder, unspecified; B96.1 Klebsiella pneumoniae [K. pneumoniae] as the cause of diseases classified elsewhere; N40.1 Benign prostatic hyperplasia with lower urinary tract symptoms; E87.6 Hypokalemia; I10 Essential (primary) hypertension; K59.00 Constipation, unspecified; Z59.0 Homelessness; Z88.5 Allergy status to narcotic agent; Z87.891 Personal history of nicotine dependence
CPT/HCPCS: 51702; 71010; 76937; 80053; 81001; 82550; 83605; 83690; 83735; 84484; 85025; 85610; 85730; 87040; 87077; 87086; 87106; 87186; 93005; 94640; 94664; 96374; G0378; J0696; J1335; J2270; J2920; J7030; J7512; J7613

== ENCOUNTER 2016-10-03 09:28 | Emergency (ER) | payer OTHER ==
[~2016-10-03] VITALS: Ht 170.2 cm; Wt 80.0 kg
[~2016-10-03 09:28] MED LIST changes: -ADVA100A INH; +CIPR750T2 PO; -CYAN100017 PO; +DIFL100T PO; -FLUT1INH INH; +LACT PO; +NIFE30TA8 PO; +OXYB5TAB10 PO; -OXYC1TAB63 PO; -OXYGENTANK NAS.CANULA; +PRED20 PO; +SYMB160A INH; -VANC125C3 PO; -WALKER WHEELS/F1 MIS; -WHEEMIS3
[2016-10-03 10:09] VITALS: BP 166/100; PULSE 84; RESP 20; TEMP 98.9; O2SAT 98
--- NOTE | 2016-10-03 10:43 | PD ---
HPI Chief Complaint: Complaint Time Seen by Provider: 10:20 Travel History International Travel<30 days: No Contact w/Intl Traveler<30days: No Traveled to known affect area: No History of Present Illness HPI This patient has history of neurogenic bladder and has chronic indwelling Mendoza catheter. At 3 AM this morning he woke up and had suprapubic pain. Duration is 7 hours. Severity is moderate. He reports that urine was leaking around the catheter at the meatus. No fever. No alleviating factors. PFSH Past Medical History Arthritis: Yes (lower back) Asthma: Yes Autoimmune Disease: No Heart Rhythm Problems: No Cancer: No Cardiovascular Problems: Yes High Cholesterol: No Chest Pain: No Congestive Heart Failure: No COPD: Yes Cerebrovascular Accident: No Diabetes: No Endocrine: No GERD: Yes Genitourinary: No Headaches: Yes Hypertension: Yes Immune Disorder: No Musculoskeletal: Yes Neurologic: Yes (headaches related to blood pressure) Psychiatric: No Reproductive: No Respiratory: Yes Migraines: No Seizures: No Sleep Apnea: No Thyroid Disease: No Past Surgical History Abdominal Surgery: No Appendectomy: Yes Cardiac Surgery: No Ear Surgery: No Endocrine Surgery: No Eye Surgery: No Genitourinary Surgery: No Gynecologic Surgery: No Thoracic Surgery: No Other Surgery: Yes (LLE GANGRENE REMOVAL) Social History Alcohol Use: No Tobacco Use: No Substance Use: No Allergies-Medications (Allergen,Severity, Reaction): Coded Allergies: Codeine (Verified Allergy, Severe, Seizures, 10/03/16) *MDRO Multi-Drug Resistant Organism (Verified Adverse Reaction, Unknown, ) ESBL K. pneumoniae (urine) - 09/15/16 Reported Meds & Prescriptions Reported Meds & Active Scripts Active Flomax (Tamsulosin HCl) 0.4 Mg Cap 0.4 Mg PO DAILY@21 30 Days Nifedipine ER 24 HR (Nifedipine) 30 Mg Tab 30 Mg PO DAILY 30 Days Acidophilus/l-Sporogenes (Lactobacillus Acidophilus) 1 Tab Tab 1 Tab PO TID 9 Days Symbicort Inh (Budesonide/Formoterol Fumarate) 160-4.5 Mcg/Act Aero 2 Puff INH Q12HR Cymbalta DR (Duloxetine HCl) 20 Mg Capdr 20 Mg PO DAILY Duragesic Patch 72 HR (Fentanyl) 75 Mcg/Hr Patch 1 Patch TD Q3D Review of Systems General / Constitutional: No: Fever Eyes: No: Visual changes HENT: No: Headaches Cardiovascular: No: Chest Pain or Discomfort Respiratory: No: Shortness of Breath Gastrointestinal: No: Abdominal Pain Genitourinary: Positive: Decreased Urinary Output, No: Dysuria Musculoskeletal: Positive: Pain Skin: No Rash Neurologic: No: Weakness Psychiatric: No: Depression Endocrine: No: Polydipsia Hematologic/Lymphatic: No: Easy Bruising Physical Exam Narrative GENERAL: Well-nourished, well-developed patient with low central abdominal pain. SKIN: Warm and dry. HEAD: Atraumatic. Normocephalic. EYES: Pupils equal and round. No scleral icterus. No injection or drainage. ENT: No nasal bleeding or discharge. Mucous membranes pink and moist. NECK: Trachea midline. No JVD. CARDIOVASCULAR: Regular rate and rhythm. No murmur appreciated. RESPIRATORY: No accessory muscle use. Clear to auscultation. Breath sounds equal bilaterally. GASTROINTESTINAL: Abdomen soft, suprapubic tenderness and some distention suspected. Hepatic and splenic margins not palpable. MUSCULOSKELETAL: No obvious deformities. No clubbing. No cyanosis. No edema. NEUROLOGICAL: Awake and alert. No obvious cranial nerve deficits. Motor grossly within normal limits. Normal speech. PSYCHIATRIC: Appropriate mood and affect; insight and judgment normal. : Circumcised penis. Catheter in position. About 200 cc of yellow urine in the Mendoza catheter bag Data Data Last Documented VS Vital Signs Date Time Temp Pulse Resp B/P Pulse Ox O2 Delivery O2 Flow Rate FiO2 10/03/16 10:09 98.9 84 20 166/100 98 Orders Urinary Catheter Insert/Apply (10/03/16 10:32) Remove Urinary Catheter .ONCE (10/03/16 10:32) Urinalysis - C+S If Indicated (10/03/16 10:33) Urine Culture (10/03/16 10:56) Labs Laboratory Tests Test 10/03/16 10:56 Urine Color YELLOW Urine Turbidity HAZY Urine pH 6.0 Urine Specific [place] 1.014 Urine Protein TRACE mg/dL Urine Glucose (UA) NEG mg/dL Urine Ketones NEG mg/dL Urine Occult Blood SMALL Urine Nitrite NEG Urine Bilirubin NEG Urine Urobilinogen LESS THAN 2.0 MG/DL Urine Leukocyte Esterase LARGE Urine RBC 39 /hpf Urine WBC 64 /hpf Urine Calcium Oxalate Crystals OCC /hpf Urine Mucus FEW /lpf Microscopic Urinalysis Comment CULTURE INDICATED MDM Medical Decision Making Medical Screen Exam Complete: Yes Emergency Medical Condition: Yes Medical Record Reviewed: Yes Differential Diagnosis Urinary retention, Mendoza catheter malfunction, neurogenic bladder Narrative Course I have reviewed the patient's electronic medical record. Patient was discharged couple weeks ago from this facility with cystitis Reviewed the culture results which was sensitive to everything except cephalosporin His Mendoza catheter was removed. It was obstructed/nonfunctional. He was only able to urinate about 50 cc Attempting to replace with a fresh new Mendoza catheter Urinalysis as expected for him with a chronic indwelling catheter is not normal. There is some pyuria and leukocyte esterase Off and I recommend awaiting culture results prior to treating and someone without clearcut's. Patient is really not wanting to follow that route because he does not have a follow-up physician and does not want to be struggling to find antibiotics that he might need given his history of urinary infections. I did prescribe some Macrobid for one week. Encouraged him to try to obtain a family physician. We replaced a fresh catheter which is draining now. After draining 500- 600 cc of urine out his bladder he felt much improved Diagnosis Primary Impression: Malfunction of Mendoza catheter Qualified Code: T83.011A - Malfunction of Mendoza catheter, initial encounter Additional Impressions: Neurogenic bladder UTI (urinary tract infection) Qualified Code: T83.511A - Urinary tract infection associated with indwelling urethral catheter, initial encounter Additional Instructions: The patient was advised to follow up with their physician and return if they worsen. Med/Other Pt SpecificInfo: Prescription(s) given Scripts Nitrofurantoin Monohydrate Macrocrystals (Macrobid)100 Mg [id number] Mg PO BID #14 CAP Ref 0 Prov:Tramaine Dubois MD 10/03/16 Disposition: 01 DISCHARGE HOME Condition: Stable Tramaine Dubois MD Oct 03, 2016 10:43
[2016-10-03 11:07] LABS: BLOOD, URINE SMALL (NEG); CALCIUM OXALATE CRYSTALS,URINE OCC /hpf; COMMENT (UR) CULTURE INDICATED; CULTURE IF INDICATED CULTURE INDICATED; GLUCOSE,URINE NEG (NEG); KETONE, URINE NEG (NEG); MUCUS URINE FEW /lpf (OCC); NITRITE,URINE NEG (NEG); URINE COLOR YELLOW (YELLW/STRAW)
[2016-10-03] MEDS ORDERED: MACR100C2 PO ×2 (13:34→13:42)
[2016-10-03 13:38] VITALS: BP 135/83; PULSE 89; RESP 20; O2SAT 100
[2016-10-05] MEDS ORDERED: OXYB5TAB10 PO ×2 (14:15→14:34)
[2016-10-05] MEDS ORDERED: DULO20 PO (14:34)
[2016-10-05] MEDS ORDERED: TAMS5CAP PO (14:34)
[2016-10-05] MEDS ORDERED: NIFE30TA8 PO (14:34)
[2016-11-21] MEDS ORDERED: AMLO5TAB2 PO (07:44)
[2017-01-01] MEDS ORDERED: HYDR25TA5 PO (13:03)
== END 2016-10-03 15:00 | disposition home or self-care (01) ==
LOC: NEPE 09:28 → NEPA 15:00
DX: T83.011A Breakdown (mechanical) of indwelling urethral catheter, initial encounter (principal); N31.9 Neuromuscular dysfunction of bladder, unspecified; N39.0 Urinary tract infection, site not specified
CPT/HCPCS: 51702; 81001; 87086

== ENCOUNTER 2016-11-12 04:28 | Emergency (ER) | payer MEDICARE, OTHER ==
[~2016-11-12] VITALS: Ht 170.2 cm; Wt 87.0 kg
[~2016-11-12 04:28] MED LIST changes: -CIPR750T2 PO; -DIFL100T PO; -FENT75T TD; +MACR100C2 PO; -PRED20 PO
[2016-11-12 04:33] VITALS: BP 159/109; PULSE 91; RESP 18; TEMP 97.6; O2SAT 97
[2016-11-12] MEDS ORDERED: LIDOCAINE 2% JELLY 30 ML TUBE TOPICAL ONE (04:45)
[2016-11-12] MEDS ORDERED: ONDANSETRON ODT 4 MG TAB PO ONE (04:45)
[2016-11-12] MEDS ORDERED: LIDOCAINE HCL 1% PF 30 ML VIAL XX ONE (04:45)
[2016-11-12] MEDS ORDERED: MORPHINE SULFATE 4 MG/ML INJ IM ONE (04:45)
[2016-11-12] MEDS ORDERED: CIPR-9 PO (04:49)
--- NOTE | 2016-11-12 04:49 | PD ---
HPI Chief Complaint: Complaint Time Seen by Provider: 04:34 Travel History International Travel<30 days: No Contact w/Intl Traveler<30days: No Traveled to known affect area: No History of Present Illness HPI 61-year-old male complains of pus draining from the urethra and penile pain. Patient states that the symptoms started 2 days ago. Patient has history of neurogenic bladder and has indwelling Mendoza catheter. Patient states that the Mendoza catheter was changed about a month ago. Patient states that he started having pus draining out of the penis around the Mendoza catheter. Patient also complained of penile pain. Patient denies any headache. Patient denies any chest pain or shortness of breath. Patient denies abdominal pain. Patient denies any back pain. Patient denies any fever chills. PFSH Past Medical History Arthritis: Yes (lower back) Asthma: Yes Autoimmune Disease: No Heart Rhythm Problems: No Cancer: No Cardiovascular Problems: Yes High Cholesterol: No Chest Pain: No Congestive Heart Failure: No COPD: Yes Cerebrovascular Accident: No Diabetes: No Endocrine: No GERD: Yes Genitourinary: No Headaches: Yes Hypertension: Yes Immune Disorder: No Musculoskeletal: Yes Neurologic: Yes (headaches related to blood pressure) Psychiatric: No Reproductive: No Respiratory: Yes Migraines: No Seizures: No Sleep Apnea: No Thyroid Disease: No Past Surgical History Abdominal Surgery: No Appendectomy: Yes Cardiac Surgery: No Ear Surgery: No Endocrine Surgery: No Eye Surgery: No Genitourinary Surgery: No Gynecologic Surgery: No Thoracic Surgery: No Other Surgery: Yes (LLE GANGRENE REMOVAL) Social History Alcohol Use: No Tobacco Use: No Substance Use: No Allergies-Medications (Allergen,Severity, Reaction): Coded Allergies: Codeine (Verified Allergy, Severe, Seizures, 11/12/16) *MDRO Multi-Drug Resistant Organism (Verified Adverse Reaction, Unknown, ) ESBL K. pneumoniae (urine) - 09/15/16 Reported Meds & Prescriptions Reported Meds & Active Scripts Active Cipro (Ciprofloxacin HCl) 500 Mg Tab 500 Mg PO BID Ditropan (Oxybutynin Chloride) 5 Mg Tab 5 Mg PO Q8HR Flomax (Tamsulosin HCl) 0.4 Mg Cap 0.4 Mg PO DAILY@21 Nifedipine ER 24 HR (Nifedipine) 30 Mg Tab 30 Mg PO DAILY Cymbalta DR (Duloxetine HCl) 20 Mg Capdr 20 Mg PO DAILY Acidophilus/l-Sporogenes (Lactobacillus Acidophilus) 1 Tab Tab 1 Tab PO TID 9 Days Symbicort Inh (Budesonide/Formoterol Fumarate) 160-4.5 Mcg/Act Aero 2 Puff INH Q12HR Review of Systems General / Constitutional: No: Fever Eyes: No: Visual changes HENT: No: Headaches Cardiovascular: No: Chest Pain or Discomfort Respiratory: No: Shortness of Breath Gastrointestinal: No: Abdominal Pain Genitourinary: No: Dysuria Musculoskeletal: No: Pain Skin: No Rash Neurologic: No: Weakness Psychiatric: No: Depression Endocrine: No: Polydipsia Hematologic/Lymphatic: No: Easy Bruising Physical Exam Narrative GENERAL: Well-nourished, well-developed patient. SKIN: Warm and dry. HEAD: Normocephalic. EYES: No scleral icterus. No injection or drainage. NECK: Supple, trachea midline. No JVD or lymphadenopathy. CARDIOVASCULAR: Regular rate and rhythm without murmurs, gallops, or rubs. RESPIRATORY: Breath sounds equal bilaterally. No accessory muscle use. GASTROINTESTINAL: Abdomen soft, non-tender, nondistended. MUSCULOSKELETAL: No cyanosis, or edema. BACK: Nontender without obvious deformity. No CVA tenderness. exam: Patient has a Mendoza catheter in place. Patient has pussy yellow discharge coming out of the urethra around the Mendoza catheter. The urine is cloudy. Data Data Last Documented VS Vital Signs Date Time Temp Pulse Resp B/P Pulse Ox O2 Delivery O2 Flow Rate FiO2 11/12/16 04:36 91 18 11/12/16 04:33 97.6 159/109 97 Orders Lidocaine 2% Jelly (Xylocaine 2% Jelly) (11/12/16 04:45) Morphine Inj (Morphine Inj) (11/12/16 04:45) Ondansetron Odt (Zofran Odt) (11/12/16 04:45) Ceftriaxone Inj (Rocephin Inj) (11/12/16 04:45) Lidocaine Pf 1% Inj (Xylocaine-Mpf 1% In (11/12/16 04:45) Urinalysis - C+S If Indicated (11/12/16 04:38) Urinary Catheter Insert/Apply (11/12/16 04:38) Urinary Catheter - Remove (11/12/16 04:38) MDM Medical Decision Making Medical Screen Exam Complete: Yes Emergency Medical Condition: Yes Differential Diagnosis Differential diagnosis including urethritis, UTI, pyelonephritis. Narrative Course 61-year-old male with history of neurogenic bladder, indwelling Mendoza catheter, discharged from the urethra around the Mendoza catheter. Mendoza catheter was removed. A new Mendoza catheter inserted. Scripts Ciprofloxacin (Cipro)500 Mg [id number] Mg PO BID #20 TAB Prov:Leroy Sky MD 11/12/16 Leroy Sky MD Nov 12, 2016 04:49 Urethritis, not sexually transmitted Patient Instructions: General Instructions Additional Instructions: Cipro as directed. Follow-up with personal physician. Return if worse. Med/Other Pt SpecificInfo: Prescription(s) given Scripts Ciprofloxacin (Cipro)500 Mg [id number] Mg PO BID #20 TAB Prov:Leroy Sky MD 11/12/16 Disposition: 01 DISCHARGE HOME Condition: Stable Leroy Sky MD Nov 12, 2016 04:49
--- NOTE | 2016-11-12 06:27 | RADRPT ---
EXAM DATE/TIME: 11/12/2016 06:08 [place] COMPARISON: CT ABDOMEN & PELVIS W CONTRAST, August 11, 2016, 15:23. INDICATIONS : Unable to remove Mendoza catheter; obstruction. Penile pain. ORAL CONTRAST: No oral contrast ingested. RADIATION DOSE: 15.42 CTDIvol (mGy) MEDICAL HISTORY : Hypertension. Chronic obstructive pulmonary disease. Cardiovascular diseaseAsthma, neurogenic bladder SURGICAL HISTORY : Appendectomy. ENCOUNTER: Initial ACUITY: 1 day PAIN SCALE: 8/10 LOCATION: abdomen TECHNIQUE: Volumetric scanning of the abdomen and pelvis was performed. Using automated exposure control and ad justment of the mA and/or kV according to patient size, radiation dose was kept as low as reasonably achievable to obtain optimal diagnostic quality images. FINDINGS: LOWER LUNGS: Emphysematous changes within the visualized lung bases. LIVER: Homogeneous density without lesion. There is no dilation of the biliary tree. No calcified gallston es. SPLEEN: Normal size without lesion. PANCREAS: Within normal limits. KIDNEYS: Normal in size and shape. There is no mass, stone, or hydronephrosis. A 4.1 cm cyst is seen involvin g the upper pole of the left kidney. Hounsfield units are zero. This is unchanged from the prior stud y. ADRENAL GLANDS: Within normal limits. VASCULAR: There is no aortic aneurysm. BOWEL/MESENTERY: The stomach, small bowel, and colon demonstrate no acute abnormality. There is no free intraperitone al air or fluid. ABDOMINAL WALL: Within normal limits. RETROPERITONEUM: There is no lymphadenopathy. BLADDER: Multiple tiny calcified stones are seen layering within the bladder. These are considerably less than 5 mm each in size. The tip of the Mendoza catheter is within the prostatic portion of the urethra. I d o not see an inflated balloon. REPRODUCTIVE: Within normal limits. INGUINAL: There is no lymphadenopathy or hernia. MUSCULOSKELETAL: Degenerative lumbar spine. Multiple old left-sided rib fractures. CONCLUSION: 1. Tip of the Mendoza is within the prostatic portion of the urethra. The balloon is felt to be decompr essed. 2. Multiple tiny bladder stones. 3. Stable left renal cyst. 4. Multiple chronic left rib fractures. Kalyan Hutson Jr., MD on November 12, 2016 at 6:21 Board Certified Radiologist. This report was verified electronically.
[2016-11-12] MEDS ORDERED: MORPHINE SULFATE 4 MG/ML INJ IV PUSH ONE (06:45)
[2016-11-12 07:47] LABS: AUTOMATED NEUTROPHIL # 11.8 TH/MM3 (1.8-7.7); BASOPHIL # 0.2 TH/MM3 (0-0.2); BASOPHIL % 1.2 % (0.0-2.0); EOSINOPHIL # 0.4 TH/MM3 (0-0.4); EOSINOPHIL % 2.6 % (0.0-4.0); HEMO FLAGS DIFF FINAL; LYMPH % 11.6 % (9.0-44.0); LYMPHOCYTE # 1.8 TH/MM3 (1.0-4.8); MEAN CELL VOLUME 81.2 FL (80.0-100.0); MEAN CORPUSCULAR HEMOGLOBIN 27.6 PG (27.0-34.0); MONO % 6.4 % (0.0-8.0); NEUT % 78.2 % (16.0-70.0); PLATELET COUNT 383 TH/MM3 (150-450); RED BLOOD COUNT 5.18 MIL/MM3 (4.50-5.90); RED CELL DISTRIBUTION WIDTH 18.2 % (11.6-17.2); WHITE BLOOD COUNT 15.1 TH/MM3 (4.0-11.0)
[2016-11-12 07:53] LABS: APTT (PATIENT) 26.4 SEC (24.3-30.1); INTERNATIONAL NORMALIZED RATIO 0.9 RATIO; PROTHROMBIN TIME - PATIENT 10.1 SEC (9.8-11.6)
[2016-11-12 08:00] LABS: POTASSIUM 4.1 MEQ/L (3.5-5.1)
[2016-11-12 08:44] VITALS: BP 173/102; PULSE 87; RESP 19; O2SAT 97
[2016-11-12 09:04] VITALS: RESP 19
--- NOTE | 2016-11-12 09:20 | PD.CONS ---
HPI Service Urology Consult Requested By Primary Care Physician No Primary Care Physician Diagnosis: History of Present Illness 61-year-old male with a history of urinary retention secondary to BPH with a chronic indwelling Mendoza for the last 5 months presents to the emergency room with purulent drainage around his Mendoza catheter. Attempt by the ER staff was made to remove the Mendoza catheter was unsuccessful. CT scan showed that there was some encrustation around the tip of the Mendoza. Mendoza was removed with gentle traction at the bedside. He states that he was admitted with pneumonia back in June 2016 a Mendoza catheter was placed at that time. He is a poor historian and uncertain as to why he was unable to urinate. He does have some low back injury in the past and has some pierced anesthesia in his bilateral thigh regions. Prior to his Mendoza catheter being inserted back in June, he states that he was getting up 4-5 times at night and voiding small amounts. Apparently, during the hospitalization he went into urinary retention and was started on Flomax. He has not followed up with urology and continues to have a Mendoza catheter in for chronic drainage. I recommend that he follow up with our clinic and he may be a candidate for a TURP in the future. Review of Systems Constitutional: DENIES: Diaphoretic episodes Endocrine: DENIES: Heat/cold intolerance Eyes: DENIES: Blurred vision Ears, nose, mouth, throat: DENIES: Tinnitus Respiratory: DENIES: Apneas Cardiovascular: DENIES: Chest pain Gastrointestinal: DENIES: Abdominal pain Musculoskeletal: DENIES: Joint pain Integumentary: DENIES: Abnormal pigmentation Hematologic/lymphatic: DENIES: Bruising Immunologic/allergic: DENIES: Eczema Neurologic: COMPLAINS OF: Abnormal gait Past Family Social History Past Medical History COPD Pneumonia BPH with obstruction and urinary retention Headaches Hypertension Past Surgical History Appendectomy Allergies: Coded Allergies: Codeine (Verified Allergy, Severe, Seizures, 11/12/16) *MDRO Multi-Drug Resistant Organism (Verified Adverse Reaction, Unknown, ) ESBL K. pneumoniae (urine) - 09/15/16 Family History Denies family history of prostate cancer Social History History of smoking in the past Physical Exam Vital Signs Date Time Temp Pulse Resp B/P Pulse Ox O2 Delivery O2 Flow Rate FiO2 11/12/16 09:04 19 11/12/16 08:44 87 19 173/102 97 Nasal Cannula 2 11/12/16 04:36 91 18 11/12/16 04:33 97.6 91 18 159/109 97 Physical Exam GENERAL: This is a well-nourished, well-developed patient, in no apparent distress. SKIN: No rashes, ecchymoses or lesions. Cool and dry. HEAD: Atraumatic. Normocephalic. No temporal or scalp tenderness. EYES: Pupils equal round and reactive. Extraocular motions intact. No scleral icterus. No injection or drainage. ENT: Nose without bleeding, purulent drainage or septal hematoma. Throat without erythema, tonsillar hypertrophy or exudate. Uvula midline. Airway patent. NECK: Trachea midline. No JVD or lymphadenopathy. Supple, nontender, no meningeal signs. CARDIOVASCULAR: Regular rate and rhythm without murmurs, gallops, or rubs. RESPIRATORY: Clear to auscultation. Breath sounds equal bilaterally. No wheezes , rales, or rhonchi. GASTROINTESTINAL: Abdomen soft, non-tender, nondistended. No hepato-splenomegaly , or palpable masses. No guarding. GENITOURINARY: Normal phallus with Mendoza catheter in place and purulent drainage around it. Mendoza catheter removed. Rectal 40 g prostate: smooth and no nodules, enlarged. MUSCULOSKELETAL: Extremities without clubbing, cyanosis, or edema. No joint tenderness, effusion, or edema noted. No calf tenderness. Negative Homans sign bilaterally. NEUROLOGICAL: Awake and alert. Motor and sensory grossly within normal limits. Laboratory Tests Test 11/12/16 07:30 White Blood Count 15.1 Red Blood Count 5.18 Hemoglobin 14.3 Hematocrit 42.0 Mean Corpuscular Volume 81.2 Mean Corpuscular Hemoglobin 27.6 Mean Corpuscular Hemoglobin 34.0 Concent Red Cell Distribution Width 18.2 Platelet Count 383 Mean Platelet Volume 8.0 Neutrophils (%) (Auto) 78.2 Lymphocytes (%) (Auto) 11.6 Monocytes (%) (Auto) 6.4 Eosinophils (%) (Auto) 2.6 Basophils (%) (Auto) 1.2 Neutrophils # (Auto) 11.8 Lymphocytes # (Auto) 1.8 Monocytes # (Auto) 1.0 Eosinophils # (Auto) 0.4 Basophils # (Auto) 0.2 CBC Comment DIFF FINAL Differential Comment Prothrombin Time 10.1 Prothromb Time International 0.9 Ratio Activated Partial 26.4 Thromboplast Time Sodium Level 137 Potassium Level 4.1 Chloride Level 104 Carbon Dioxide Level 25.0 Anion Gap 8 Blood Urea Nitrogen 26 Creatinine 0.65 Estimat Glomerular Filtration 125 Rate Random Glucose 102 Calcium Level 9.3 Result Diagram: 11/12/16 0730 11/12/16 0730 Imaging Last Impressions Abdomen/Pelvis CT 11/12/16 0558 Signed Impressions: Service Date/Time: Saturday, November 12, 2016 06:08 - CONCLUSION: 1. Tip of the Mendoza is within the prostatic portion of the urethra. The balloon is felt to be decompressed. 2. Multiple tiny bladder stones. 3. Stable left renal cyst. 4. Multiple chronic left rib fractures. Kalyan Hutson Jr., MD Assessment and Plan Assessment and Plan 61-year-old male with history of BPH with obstruction and urinary retention Mendoza catheter changed out to the emergency room today We'll need to follow-up in the office and evaluated for possible TURP in the future Bactrim DS 1 tab by mouth twice a day for 10 days Benny Biggs DO Nov 12, 2016 09:20
--- NOTE | 2016-11-12 09:21 | PD ---
Physical Exam Date Seen by Provider: Nov 12, 2016 Time Seen by Provider: 07:00 Narrative Patient seen and evaluated by Dr. Sky, please see Dr. Sky for further information. Patient is having neurogenic bladder, having UTI, difficulty removing catheter, awaiting for Dr. Biggs for removal of catheter. Laboratory Tests Test 11/12/16 07:30 White Blood Count 15.1 TH/MM3 (4.0-11.0) Red Cell Distribution Width 18.2 % (11.6-17.2) Neutrophils (%) (Auto) 78.2 % (16.0-70.0) Neutrophils # (Auto) 11.8 TH/MM3 (1.8-7.7) Monocytes # (Auto) 1.0 TH/MM3 (0-0.9) Blood Urea Nitrogen 26 MG/DL (7-18) Last 24 hours Impressions Abdomen/Pelvis CT 11/12/16 0558 Signed Impressions: Service Date/Time: Saturday, November 12, 2016 06:08 - CONCLUSION: 1. Tip of the Mendoza is within the prostatic portion of the urethra. The balloon is felt to be decompressed. 2. Multiple tiny bladder stones. 3. Stable left renal cyst. 4. Multiple chronic left rib fractures. Kalyan Hutson Jr., MD Patient is seen by Dr. Biggs this morning and he was able to remove the catheter. 16 [place] catheter was then placed. At this point, per Dr. Biggs, patient can be released with antibiotic treatment and follow-up to his office for further evaluation of neurogenic bladder. Return for any worsening in symptoms as necessary. The plan has discussed with him and he is agreeable. Data Data Last Documented VS Vital Signs Date Time Temp Pulse Resp B/P Pulse Ox O2 Delivery O2 Flow Rate FiO2 11/12/16 09:04 19 11/12/16 08:44 87 173/102 97 Nasal Cannula 2 11/12/16 04:33 97.6 Orders Lidocaine 2% Jelly (Xylocaine 2% Jelly) (11/12/16 04:45) Morphine Inj (Morphine Inj) (11/12/16 04:45) Ondansetron Odt (Zofran Odt) (11/12/16 04:45) Ceftriaxone Inj (Rocephin Inj) (11/12/16 04:45) Lidocaine Pf 1% Inj (Xylocaine-Mpf 1% In (11/12/16 04:45) Urinalysis - C+S If Indicated (11/12/16 04:38) Urinary Catheter Insert/Apply (11/12/16 04:38) Urinary Catheter - Remove (11/12/16 04:38) Ct Abd/Pel W/O Iv Contrast (11/12/16 05:58) Morphine Inj (Morphine Inj) (11/12/16 06:45) Complete Blood Count With Diff (11/12/16 07:03) Basic Metabolic Panel (Bmp) (11/12/16 07:03) Prothrombin Time / Inr (Pt) (11/12/16 07:03) Act Partial Throm Time (Ptt) (11/12/16 07:03) Iv Access Insert/Monitor (11/12/16 07:03) Labs Laboratory Tests Test 11/12/16 07:30 White Blood Count 15.1 TH/MM3 Red Blood Count 5.18 MIL/MM3 Hemoglobin 14.3 GM/DL Hematocrit 42.0 % Mean Corpuscular Volume 81.2 FL Mean Corpuscular Hemoglobin 27.6 PG Mean Corpuscular Hemoglobin 34.0 % Concent Red Cell Distribution Width 18.2 % Platelet Count 383 TH/MM3 Mean Platelet Volume 8.0 FL Neutrophils (%) (Auto) 78.2 % Lymphocytes (%) (Auto) 11.6 % Monocytes (%) (Auto) 6.4 % Eosinophils (%) (Auto) 2.6 % Basophils (%) (Auto) 1.2 % Neutrophils # (Auto) 11.8 TH/MM3 Lymphocytes # (Auto) 1.8 TH/MM3 Monocytes # (Auto) 1.0 TH/MM3 Eosinophils # (Auto) 0.4 TH/MM3 Basophils # (Auto) 0.2 TH/MM3 CBC Comment DIFF FINAL Differential Comment Prothrombin Time 10.1 SEC Prothromb Time International 0.9 RATIO Ratio Activated Partial 26.4 SEC Thromboplast Time Sodium Level 137 MEQ/L Potassium Level 4.1 MEQ/L Chloride Level 104 MEQ/L Carbon Dioxide Level 25.0 MEQ/L Anion Gap 8 MEQ/L Blood Urea Nitrogen 26 MG/DL Creatinine 0.65 MG/DL Estimat Glomerular Filtration 125 ML/MIN Rate Random Glucose 102 MG/DL Calcium Level 9.3 MG/DL [facility] Medical Record Reviewed: Yes Supervised Visit with SWAPNIL: No Diagnosis Primary Impression: UTI (urinary tract infection) Qualified Code: N30.00 - Acute cystitis without hematuria Additional Impression: Urethritis, not sexually transmitted Referrals: Benny Biggs DO Additional Instruction: Cipro as directed. Follow-up with personal physician. Return if worse. Scripts Ciprofloxacin (Cipro)500 Mg [id number] Mg PO BID #20 TAB Prov:Leroy Sky MD 11/12/16 Disposition: 01 DISCHARGE HOME Condition: Stable Carolin Villarreal MD Nov 12, 2016 09:21
[2016-11-12] MEDS ORDERED: BACT800T5 PO (09:29)
[2016-11-12 09:36] LABS: BACTERIA, URINE OCC /hpf; BLOOD, URINE MOD (NEG); CALCIUM OXALATE CRYSTALS,URINE OCC /hpf; COMMENT (UR) CULTURE INDICATED; CULTURE IF INDICATED CULTURE INDICATED; GLUCOSE,URINE NEG (NEG); KETONE, URINE NEG (NEG); MUCUS URINE FEW /lpf (OCC); NITRITE,URINE NEG (NEG); PH, URINE 6.5 (5.0-8.5); URINE COLOR YELLOW (YELLW/STRAW)
[2016-11-21] MEDS ORDERED: AMLO5TAB2 PO (07:44)
[2017-01-01] MEDS ORDERED: HYDR25TA5 PO (13:03)
== END 2016-11-12 13:00 | disposition home or self-care (01) ==
LOC: NEPC 04:28
DX: N30.00 Acute cystitis without hematuria (principal); B37.41 Candidal cystitis and urethritis; N40.1 Benign prostatic hyperplasia with lower urinary tract symptoms; N13.8 Other obstructive and reflux uropathy; I10 Essential (primary) hypertension; J44.9 Chronic obstructive pulmonary disease, unspecified; J45.909 Unspecified asthma, uncomplicated; Z79.899 Other long term (current) drug therapy
CPT/HCPCS: 51702; 74176; 80048; 81001; 85025; 85610; 85730; 87086; 96372; 96374; 99284; J0696; J2270

== ENCOUNTER 2016-12-08 03:28 | Emergency (ER) | payer MEDICARE, OTHER ==
[~2016-12-08] VITALS: Ht 170.2 cm; Wt 90.0 kg
[~2016-12-08 03:28] MED LIST changes: +AMLO5TAB2 PO; +BACT800T5 PO; -MACR100C2 PO; -NIFE30TA8 PO
[2016-12-08 03:32] VITALS: BP 170/123; PULSE 97; RESP 16; TEMP 98.4; O2SAT 96
[2016-12-08] MEDS ORDERED: AMLO10 PO (03:36)
[2016-12-08] MEDS ORDERED: ONDANSETRON HCL 4 MG/2 ML VIAL IV PUSH ONE (03:45)
[2016-12-08] MEDS ORDERED: MORPHINE SULFATE 4 MG/ML INJ IV PUSH ONE (03:45)
--- NOTE | 2016-12-08 03:55 | PD ---
HPI Chief Complaint: Complaint Time Seen by Provider: 03:30 Travel History International Travel<30 days: No Contact w/Intl Traveler<30days: No Traveled to known affect area: No History of Present Illness HPI The patient is a 61-year-old male who presents to the emergency department via EMS for Mendoza catheter malfunction. The patient states he has a history of a large prostate, has a chronic indolent Mendoza catheter gets changed monthly. The patient states he had difficulty passing urine through the Mendoza catheter earlier today, he now has leakage around the Mendoza catheter with significant pain. The patient complains of suprapubic discomfort and burning, denies any nausea or vomiting. The patient states his urologist is Dr. Biggs, he has an appointment in 2 weeks to see his urologist, states he is going to have an outpatient cystoscopy to have a "Roto-Rooter" procedure performed for his enlarged prostate. He denies any known history of kidney failure. He denies any fever, chills, sweats, or back pain. Symptoms are moderate, exacerbated by malfunction Mendoza catheter, and there are no current alleviating factors. PFSH Past Medical History Arthritis: Yes (lower back) Asthma: Yes Autoimmune Disease: No Heart Rhythm Problems: No Cancer: No Cardiovascular Problems: Yes High Cholesterol: No Chest Pain: No Congestive Heart Failure: No COPD: Yes Cerebrovascular Accident: No Diabetes: No Diminished Hearing: Yes ([employer] [place]) Endocrine: No GERD: Yes Genitourinary: Yes (NEUROGENIC BLADDER) Headaches: Yes Hypertension: Yes Immune Disorder: No Musculoskeletal: Yes Neurologic: Yes (headaches related to blood pressure) Psychiatric: No Reproductive: No Respiratory: Yes Migraines: No Seizures: No Sleep Apnea: No Thyroid Disease: No Tetanus Vaccination: < 5 Years Past Surgical History Abdominal Surgery: No Appendectomy: Yes Cardiac Surgery: No Ear Surgery: No Endocrine Surgery: No Eye Surgery: No Genitourinary Surgery: No Gynecologic Surgery: No Thoracic Surgery: No Other Surgery: Yes (LLE GANGRENE REMOVAL) Social History Alcohol Use: No Tobacco Use: No Substance Use: No Allergies-Medications (Allergen,Severity, Reaction): Coded Allergies: Codeine (Verified Allergy, Severe, Seizures, 11/12/16) *MDRO Multi-Drug Resistant Organism (Verified Adverse Reaction, Unknown, ) ESBL K. pneumoniae (urine) - 09/15/16 Reported Meds & Prescriptions Reported Meds & Active Scripts Active Ditropan (Oxybutynin Chloride) 5 Mg Tab 5 Mg PO Q8HR Flomax (Tamsulosin HCl) 0.4 Mg Cap 0.4 Mg PO DAILY@[address] (Duloxetine HCl) 20 Mg Capdr 20 Mg PO DAILY Acidophilus/l-Sporogenes (Lactobacillus Acidophilus) 1 Tab Tab 1 Tab PO TID 9 Days Symbicort Inh (Budesonide/Formoterol Fumarate) 160-4.5 Mcg/Act Aero 2 Puff INH Q12HR Reported Norvasc (Amlodipine Besylate) 10 Mg Tab 10 Mg PO DAILY Review of Systems Except as stated in HPI: all other systems reviewed are Neg General / Constitutional: No: Fever Cardiovascular: No: Chest Pain or Discomfort Respiratory: No: Shortness of Breath Gastrointestinal: No: Nausea, Vomiting Genitourinary: Positive: Decreased Urinary Output, Pelvic Pain Physical Exam Narrative GENERAL: Awake, alert, 61-year-old male who appears his stated age and appears in moderate discomfort. SKIN: Focused skin assessment warm/dry. HEAD: Atraumatic. Normocephalic. EYES: No injection or drainage. ENT: No nasal bleeding or discharge. Mucous membranes pink and moist. NECK: Trachea midline. No JVD. CARDIOVASCULAR: Regular rate and rhythm. No murmur appreciated. RESPIRATORY: No accessory muscle use. Clear to auscultation. Breath sounds equal bilaterally. GASTROINTESTINAL: Abdomen soft, tender to palpation of the suprapubic region. Minimal distention noted, inferior to the umbilicus. MUSCULOSKELETAL: No obvious deformities. No clubbing. No cyanosis. Mild lower extremity pitting edema. NEUROLOGICAL: Awake and alert. No obvious cranial nerve deficits. Motor grossly within normal limits. Normal speech. PSYCHIATRIC: Appropriate mood and affect; insight and judgment normal. Data Data Last Documented VS Vital Signs Date Time Temp Pulse Resp B/P Pulse Ox O2 Delivery O2 Flow Rate FiO2 12/08/16 04:30 69 16 172/68 98 Nasal Cannula 2 12/08/16 03:32 98.4 Orders Complete Blood Count With Diff (12/08/16 03:41) Comprehensive Metabolic Panel (12/08/16 03:41) Urinalysis - C+S If Indicated (12/08/16 03:41) Urinary Catheter Insert/Apply (12/08/16 03:41) Urinary Catheter - Remove (12/08/16 03:41) Morphine Inj (Morphine Inj) (12/08/16 03:45) Ondansetron Inj (Zofran Inj) (12/08/16 03:45) Urine Culture (12/08/16 03:50) Labs Laboratory Tests Test 12/08/16 12/08/16 03:50 04:05 Urine Color YELLOW Urine Turbidity HAZY Urine pH 6.5 Urine Specific [place] 1.017 Urine Protein 30 mg/dL Urine Glucose (UA) NEG mg/dL Urine Ketones NEG mg/dL Urine Occult Blood MOD Urine Nitrite NEG Urine Bilirubin NEG Urine Urobilinogen LESS THAN 2.0 MG/DL Urine Leukocyte Esterase LARGE Urine RBC /hpf Urine WBC /hpf Urine Mucus FEW /lpf Microscopic Urinalysis Comment CATH-CULTURE IND White Blood Count 12.1 TH/MM3 Red Blood Count 4.74 MIL/MM3 Hemoglobin 13.1 GM/DL Hematocrit 39.9 % Mean Corpuscular Volume 84.3 FL Mean Corpuscular Hemoglobin 27.7 PG Mean Corpuscular Hemoglobin 32.9 % Concent Red Cell Distribution Width 17.3 % Platelet Count 323 TH/MM3 Mean Platelet Volume 8.2 FL Neutrophils (%) (Auto) 74.7 % Lymphocytes (%) (Auto) 11.5 % Monocytes (%) (Auto) 8.5 % Eosinophils (%) (Auto) 4.3 % Basophils (%) (Auto) 1.0 % Neutrophils # (Auto) 9.0 TH/MM3 Lymphocytes # (Auto) 1.4 TH/MM3 Monocytes # (Auto) 1.0 TH/MM3 Eosinophils # (Auto) 0.5 TH/MM3 Basophils # (Auto) 0.1 TH/MM3 CBC Comment DIFF FINAL Differential Comment Sodium Level 140 MEQ/L Potassium Level 3.7 MEQ/L Chloride Level 107 MEQ/L Carbon Dioxide Level 26.3 MEQ/L Anion Gap 7 MEQ/L Blood Urea Nitrogen 27 MG/DL Creatinine 0.86 MG/DL Estimat Glomerular Filtration 91 ML/MIN Rate Random Glucose 111 MG/DL Calcium Level 8.7 MG/DL Total Bilirubin 0.4 MG/DL Aspartate Amino Transf 15 U/L (AST/SGOT) Alanine Aminotransferase 23 U/L (ALT/SGPT) Alkaline Phosphatase 85 U/L Total Protein 6.6 GM/DL Albumin 3.8 GM/DL MDM Medical Decision Making Medical Screen Exam Complete: Yes Emergency Medical Condition: Yes Medical Record Reviewed: Yes Interpretation(s) Laboratory Tests Test 12/08/16 12/08/16 03:50 04:05 Urine Color YELLOW Urine Turbidity HAZY Urine pH 6.5 Urine Specific [place] 1.017 Urine Protein 30 mg/dL Urine Glucose (UA) NEG mg/dL Urine Ketones NEG mg/dL Urine Occult Blood MOD Urine Nitrite NEG Urine Bilirubin NEG Urine Urobilinogen LESS THAN 2.0 MG/DL Urine Leukocyte Esterase LARGE Urine RBC /hpf Urine WBC /hpf Urine Mucus FEW /lpf Microscopic Urinalysis Comment CATH-CULTURE IND White Blood Count 12.1 TH/MM3 Red Blood Count 4.74 MIL/MM3 Hemoglobin 13.1 GM/DL Hematocrit 39.9 % Mean Corpuscular Volume 84.3 FL Mean Corpuscular Hemoglobin 27.7 PG Mean Corpuscular Hemoglobin 32.9 % Concent Red Cell Distribution Width 17.3 % Platelet Count 323 TH/MM3 Mean Platelet Volume 8.2 FL Neutrophils (%) (Auto) 74.7 % Lymphocytes (%) (Auto) 11.5 % Monocytes (%) (Auto) 8.5 % Eosinophils (%) (Auto) 4.3 % Basophils (%) (Auto) 1.0 % Neutrophils # (Auto) 9.0 TH/MM3 Lymphocytes # (Auto) 1.4 TH/MM3 Monocytes # (Auto) 1.0 TH/MM3 Eosinophils # (Auto) 0.5 TH/MM3 Basophils # (Auto) 0.1 TH/MM3 CBC Comment DIFF FINAL Differential Comment Sodium Level 140 MEQ/L Potassium Level 3.7 MEQ/L Chloride Level 107 MEQ/L Carbon Dioxide Level 26.3 MEQ/L Anion Gap 7 MEQ/L Blood Urea Nitrogen 27 MG/DL Creatinine 0.86 MG/DL Estimat Glomerular Filtration 91 ML/MIN Rate Random Glucose 111 MG/DL Calcium Level 8.7 MG/DL Total Bilirubin 0.4 MG/DL Aspartate Amino Transf 15 U/L (AST/SGOT) Alanine Aminotransferase 23 U/L (ALT/SGPT) Alkaline Phosphatase 85 U/L Total Protein 6.6 GM/DL Albumin 3.8 GM/DL Differential Diagnosis Differential diagnosis includes obstructive uropathy, benign prostatic hypertrophy, complicated urinary tract infection, Mendoza catheter malfunction, acute kidney failure. Narrative Course IV was established, labs are drawn and sent, the patient was placed on cardiac telemetry monitoring and continuous pulse oximetry monitoring. Bedside ultrasound was performed which revealed a slightly distended bladder with Mendoza catheter in place. Therefore, Mendoza catheter was removed and a new Mendoza catheter was inserted. The patient was administered morphine and Zofran for his discomfort. The patient's creatinine is normal. Patient's UA does reveal innumerable RBCs and WBCs, consistent with complicated UTI. The patient was administered Cipro 500 mg orally. The patient be discharged home on Cipro and pirating them, he is advised to follow-up with his urologist. Procedures Procedure Narrative A bedside ultrasound was performed which revealed a minimally distended bladder with Mendoza catheter in place. The patient tolerated the procedure without difficulty and there was no obvious complications. Diagnosis Primary Impression: Malfunction of Mendoza catheter Qualified Code: T83.011A - Malfunction of Mendoza catheter, initial encounter Additional Impression: UTI (urinary tract infection) Qualified Code: T83.511A - Urinary tract infection associated with indwelling urethral catheter, initial encounter Patient Instructions: General Instructions Additional Instructions: Medications as directed. Follow-up with your urologist. Return if symptoms worsen or progress. Monitor urine output. Med/Other Pt SpecificInfo: Prescription(s) given Scripts Phenazopyridine (Pyridium)200 Mg [id number] Mg PO Q8H PRN (DYSURIA) 2 Days Ref 0 Prov:Андрей Castillo MD 12/08/16 Ciprofloxacin (Cipro)500 Mg [id number] Mg PO BID 7 Days Ref 0 Prov:Андрей Castillo MD 12/08/16 Disposition: 01 DISCHARGE HOME Condition: Stable Андрей Castillo MD Dec 08, 2016 03:55
[2016-12-08 04:15] LABS: BASOPHIL # 0.1 TH/MM3 (0-0.2); EOSINOPHIL # 0.5 TH/MM3 (0-0.4); EOSINOPHIL % 4.3 % (0.0-4.0); HEMATOCRIT 39.9 % (39.0-51.0); LYMPH % 11.5 % (9.0-44.0); LYMPHOCYTE # 1.4 TH/MM3 (1.0-4.8); MEAN CELL VOLUME 84.3 FL (80.0-100.0); MEAN CORPUSCULAR HEMOGLOBIN 27.7 PG (27.0-34.0); MEAN CORPUSCULAR HGB CONC 32.9 % (32.0-36.0); MONO % 8.5 % (0.0-8.0); NEUT % 74.7 % (16.0-70.0); PLATELET COUNT 323 TH/MM3 (150-450); RED BLOOD COUNT 4.74 MIL/MM3 (4.50-5.90); RED CELL DISTRIBUTION WIDTH 17.3 % (11.6-17.2); WHITE BLOOD COUNT 12.1 TH/MM3 (4.0-11.0)
[2016-12-08 04:16] LABS: HEMO FLAGS DIFF FINAL
[2016-12-08 04:30] VITALS: BP 172/68; PULSE 69; RESP 16; O2SAT 98
[2016-12-08 04:36] LABS: ALT (GPT) 23 U/L (12-78); ANION GAP 7 MEQ/L (5-15); AST (GOT) 15 U/L (15-37); BICARBONATE 26.3 MEQ/L (21.0-32.0); BLOOD UREA NITROGEN 27 MG/DL (7-18); CHLORIDE 107 MEQ/L (98-107); GLOMERULAR FILTRATION RATE 91 ML/MIN (>89); POTASSIUM 3.7 MEQ/L (3.5-5.1); SODIUM (NA) 140 MEQ/L (136-145)
[2016-12-08 04:38] LABS: ALKALINE PHOSPHATASE 85 U/L (45-117); TOTAL BILIRUBIN ADULT 0.4 MG/DL (0.2-1.0)
[2016-12-08 04:47] LABS: BLOOD, URINE MOD (NEG); GLUCOSE,URINE NEG (NEG); KETONE, URINE NEG (NEG); MUCUS URINE FEW /lpf (OCC); NITRITE,URINE NEG (NEG); PH, URINE 6.5 (5.0-8.5); URINE COLOR YELLOW (YELLW/STRAW)
[2016-12-08 04:48] LABS: COMMENT (UR) CATH-CULTURE IND; CULTURE IF INDICATED CATH CULTURE IND
[2016-12-08] MEDS ORDERED: PYRI200T4 PO (04:52)
[2016-12-08] MEDS ORDERED: CIPR-9 PO (04:52)
[2016-12-08] MEDS ORDERED: CIPROFLOXACIN 500 MG TAB PO ONE (05:00)
[2016-12-08 05:07] VITALS: BP 168/77; TEMP 98.5
[2017-01-01] MEDS ORDERED: HYDR25TA5 PO (13:03)
== END 2016-12-08 08:45 | disposition home or self-care (01) ==
LOC: NEPE 03:28
DX: T83.011A Breakdown (mechanical) of indwelling urethral catheter, initial encounter (principal); T83.511A Infection and inflammatory reaction due to indwelling urethral catheter, initial encounter; N39.0 Urinary tract infection, site not specified; B95.2 Enterococcus as the cause of diseases classified elsewhere
CPT/HCPCS: 51702; 80053; 81001; 85025; 87077; 87086; 87186; 96374; 96375; 99283; J2270; J2405

== ENCOUNTER → 2017-05-16 | Outpatient (CLI) | payer OTHER ==
[~2017-05-16] MED LIST changes: +ALBU1AER5 INH; +AMLO10 PO; -AMLO5TAB2 PO; -BACT800T5 PO; +HYDR25TA5 PO; -LACT PO; +MAPA500T13 PO; -OXYB5TAB10 PO
--- NOTE | 2017-05-16 13:40 | RADRPT ---
EXAM DATE/TIME: 05/16/2017 11:50 [facility] COMPARISON: CHEST PA & LAT, August 14, 2016, 9:54. INDICATIONS : Sleep apnea. MEDICAL HISTORY : Chronic obstructive pulmonary disease. Emphysema. Hypertension. Asthma SURGICAL HISTORY : Chest tube for pneumonia 06/2016 ENCOUNTER: Initial ACUITY: 7 - 11 months PAIN SCORE: 4/10 LOCATION: Right chest FINDINGS: Minimal parenchymal changes are seen lateral left base with peribronchial thickening. Right lung is clear. Heart and pulmonary vascularity are normal. CONCLUSION: Minimal parenchymal changes left base, minimal progression from 08/14/2016 suggesting chronic disease . Saul Mensah MD FACR on May 16, 2017 at 12:44 Board Certified Radiologist. This report was verified electronically.
--- NOTE | 2017-05-28 11:41 | RSPPFT ---
DATE OF PROCEDURE: 05/16/17 COMMENTS: Spirometry with FVC of 2.4, FEV1 of 0.9, FEV1/FVC ratio at 40%. A non-significant response to acutely inhaled bronchodilator noted. Slow vital capacity is 54% of predicted. TLC is 78%. Diffusion capacity is 33%. Room air arterial blood gases show pH of 7.43, PCO2 of 41, PO2 of 84. IMPRESSION: 1. Severe airways obstruction. 2. Associated airways restriction. 3. Severe reduction in diffusion capacity. 4. Adequate oxygenation and alveolar ventilation.
== END ==
LOC: HRSP 09:32
PROVIDERS: ATTEND Internal Medicine Sleep Medicine
DX: R06.09 Other forms of dyspnea (principal); R06.89 Other abnormalities of breathing
CPT/HCPCS: 71020; 94060; 94726; 94729

== ENCOUNTER 2017-08-24 00:08 | Emergency (ER) | payer OTHER ==
[~2017-08-24] VITALS: Ht 170.2 cm; Wt 114.0 kg
[2017-08-24 00:25] VITALS: BP 142/84; PULSE 96; RESP 30; O2SAT 96
[2017-08-24 00:35] VITALS: O2SAT 97
--- NOTE | 2017-08-24 00:37 | PD ---
HPI Chief Complaint: Respiratory Distress Time Seen by Provider: 00:24 Travel History International Travel<30 days: No Contact w/Intl Traveler<30days: No Traveled to known affect area: No History of Present Illness HPI Patient is a 62-year-old male who tonight sitting in his recliner sneezed and then suddenly had severe left lower rib pain . Shortness of breath pain with deep inspiration any movement makes the pain severe 10 out of 10. He is lives on 2 L nasal cannula at home . Pt called EMS and En route was given Solu- Medrol and 2 duonebs and his sat is 97% on 2 L nasal cannula in the ER. He is in no respiratory distress however he has distress from pain when he moves at all in the stretcher , denies trauma and SOB feeling comes with movement . I immediatley do a POC bedside sono to access for pneumothorax and both lungs appear up inflated. , pain continues with each movement. , has no seen and MD for this and took nothing for the pain , Pain began JPTA. pt lives in room with a roommate. PFSH Past Medical History Arthritis: Yes (lower back) Asthma: Yes Autoimmune Disease: No Heart Rhythm Problems: No Cancer: No Cardiac Catheterization: No Cardiovascular Problems: Yes (HTN, ) High Cholesterol: Yes Chest Pain: No Congestive Heart Failure: No COPD: Yes (2 L NC AT HOME) Cerebrovascular Accident: No Diabetes: No Diminished Hearing: Yes ([place]) Deep Vein Thrombosis: Yes Endocrine: No GERD: Yes Genitourinary: Yes (NEUROGENIC BLADDER) Headaches: Yes Hypertension: Yes Immune Disorder: No Musculoskeletal: Yes Neurologic: Yes (headaches related to blood pressure) Psychiatric: No Reproductive: No Respiratory: Yes Migraines: No Seizures: No Sleep Apnea: No Thyroid Disease: No Tetanus Vaccination: < 5 Years Influenza Vaccination: Yes Past Surgical History Abdominal Surgery: No Appendectomy: Yes Cardiac Surgery: No Coronary Artery Bypass Graft: No Ear Surgery: No Endocrine Surgery: No Eye Surgery: No Genitourinary Surgery: No Gynecologic Surgery: No Neurologic Surgery: Yes (BACK X3) Thoracic Surgery: No Tonsillectomy: Yes Other Surgery: Yes (LLE GANGRENE REMOVAL) Social History Alcohol Use: No Tobacco Use: No Substance Use: No Allergies-Medications (Allergen,Severity, Reaction): Coded Allergies: codeine (Verified Allergy, Severe, Seizures, 06/18/17) *MDRO Multi-Drug Resistant Organism (Verified Adverse Reaction, Unknown, 06/18/17) ESBL K. pneumoniae (urine) - 09/15/16 Reported Meds & Prescriptions Reported Meds & Active Scripts Active Christopher (Hydrocodone-Acetaminophen) 5 Mg-325 Mg Tab 1 Tab PO Q4H PRN Ibuprofen 600 Mg Tab 600 Mg PO Q8HR PRN Flomax (Tamsulosin HCl) 0.4 Mg Cap 0.4 Mg PO DAILY@21 PT to take 2 tabs PO QHS Cymbalta DR (Duloxetine HCl) 20 Mg Capdr 20 Mg PO DAILY Symbicort Inh (Budesonide/Formoterol Fumarate) 160-4.5 Mcg/Act Aero 2 Puff INH Q12HR Reported Proair Respiclick Inh (Albuterol Sulfate) 90 Mcg/Act Aerp 2 Puff INH Q6H PRN Mapap Extra Strength (Acetaminophen) 500 Mg Tab 500 Mg PO Q4-6H PRN Hydrochlorothiazide 25 Mg Tab 25 Mg PO DAILY Norvasc (Amlodipine Besylate) 10 Mg Tab 5 Mg PO DAILY Review of Systems Except as stated in HPI: all other systems reviewed are Neg Musculoskeletal: Positive: Pain (severe left sided rib pain), Other Physical Exam Narrative GENERAL: pt is in resp distress tachypneic on 2 liters pain 10/10 SKIN: Warm and dry. HEAD: Atraumatic. Normocephalic. EYES: Pupils equal and round. No scleral icterus. No injection or drainage. ENT: No nasal bleeding or discharge. Mucous membranes pink and moist. NECK: Trachea midline. No JVD. CARDIOVASCULAR: Regular rate and rhythm. RESPIRATORY: No accessory muscle use. Clear to auscultation. Breath sounds equal bilaterally. wheeze diffuse and severe left rib pain lateral rib pain .. 10 /10 with severe tenderness to palpation GASTROINTESTINAL: Abdomen soft, non-tender, nondistended. Hepatic and splenic margins not palpable. MUSCULOSKELETAL: Extremities without clubbing, cyanosis, or edema. No obvious deformities. NEUROLOGICAL: Awake and alert. No obvious cranial nerve deficits. Motor grossly within normal limits. Five out of 5 muscle strength in the arms and legs. Normal speech. PSYCHIATRIC: Appropriate mood and affect; insight and judgment normal. Data Data Last Documented VS Vital Signs Date Time Temp Pulse Resp B/P (MAP) Pulse Ox O2 Delivery O2 Flow Rate FiO2 08/24/17 05:02 08/24/17 02:00 80 18 97 Room Air 08/24/17 00:35 2.00 Orders Orders Chest, Single Ap (08/24/17 ) Complete Blood Count With Diff (08/24/17 00:24) Comprehensive Metabolic Panel (08/24/17 00:24) Ckmb (Isoenzyme) Profile (08/24/17 00:24) Troponin I (08/24/17 00:24) Lipase (08/24/17 00:24) Magnesium (Mg) (08/24/17 00:24) Ketorolac Inj (Toradol Inj) (08/24/17 00:45) Morphine Inj (Morphine Inj) (08/24/17 00:45) Diazepam (Valium) (08/24/17 00:45) Ct Thorax/ Chest Wo Iv Contras (08/24/17 ) Ed Discharge Order (08/24/17 04:59) Electrocardiogram (08/24/17 00:26) Labs Laboratory Tests Test 08/24/17 00:25 White Blood Count 14.9 TH/MM3 Red Blood Count 4.81 MIL/MM3 Hemoglobin 14.4 GM/DL Hematocrit 42.6 % Mean Corpuscular Volume 88.5 FL Mean Corpuscular Hemoglobin 29.9 PG Mean Corpuscular Hemoglobin Concent 33.7 % Red Cell Distribution Width 16.0 % Platelet Count 392 TH/MM3 Mean Platelet Volume 8.4 FL Neutrophils (%) (Auto) 77.6 % Lymphocytes (%) (Auto) 12.2 % Monocytes (%) (Auto) 8.7 % Eosinophils (%) (Auto) 1.0 % Basophils (%) (Auto) 0.5 % Neutrophils # (Auto) 11.5 TH/MM3 Lymphocytes # (Auto) 1.8 TH/MM3 Monocytes # (Auto) 1.3 TH/MM3 Eosinophils # (Auto) 0.2 TH/MM3 Basophils # (Auto) 0.1 TH/MM3 CBC Comment DIFF FINAL Differential Comment Blood Urea Nitrogen 31 MG/DL Creatinine 1.24 MG/DL Random Glucose 166 MG/DL Total Protein 7.1 GM/DL Albumin 3.9 GM/DL Calcium Level 8.3 MG/DL Magnesium Level 1.9 MG/DL Alkaline Phosphatase 85 U/L Aspartate Amino Transf (AST/SGOT) 25 U/L Alanine Aminotransferase (ALT/SGPT) 53 U/L Total Bilirubin 0.3 MG/DL Sodium Level 138 MEQ/L Potassium Level 4.4 MEQ/L Chloride Level 104 MEQ/L Carbon Dioxide Level 26.5 MEQ/L Anion Gap 8 MEQ/L Estimat Glomerular Filtration Rate 59 ML/MIN Total Creatine Kinase 88 U/L Troponin I LESS THAN 0.02 NG/ML Lipase 168 U/L MDM Medical Decision Making Medical Screen Exam Complete: Yes Emergency Medical Condition: Yes Differential Diagnosis Fractured rib versus pneumothorax versus cardio cause of chest pain costochondritis , pathologic fracture rib from sneezing Narrative Course I do immediate bedside SONO which shows lungs are up bilaterally and no emergent chest tube indicated, pt chest xray shows no pathology. I do a CT to look for rib fracture and he has a singular penal officer left sided rib frature. THis is strange area for single fracture , but CT doesnot report suspicion of pathologic fracture. pt denies direct blow to are a and inspection there is no hematoma acute nor healing. Pain meds Ibuprofen Hydrocodone for 3 days and close outpt follow up Diagnosis Primary Impression: Fractured rib Qualified Codes: S22.32XA - Fracture of one rib, left side, initial encounter for closed fracture Additional Impression: Left rib fracture Qualified Codes: S22.32XA - Fracture of one rib, left side, initial encounter for closed fracture Patient Instructions: General Instructions, Rib Fracture (ED) Scripts Hydrocodone-Acetaminophen (Christopher) 5 Mg-325 Mg Tab 1 TAB PO Q4H Y for PAIN, #15 TAB 0 Refills Prov: Isaias Dowell MD 08/24/17 Ibuprofen (Ibuprofen) 600 Mg Tab 600 MG PO Q8HR Y for PAIN, #20 TAB 0 Refills Prov: Isaias Dowell MD 08/24/17 Disposition: 01 DISCHARGE HOME Condition: Good Isaias Dowell MD Aug 24, 2017 00:37
[2017-08-24] MEDS ORDERED: KETOROLAC TROMETHAMINE 30 MG/ML (IVP) VIAL IV PUSH ONE (00:45)
[2017-08-24] MEDS ORDERED: MORPHINE SULFATE 2 MG/ML INJ IV PUSH ONE (00:45)
[2017-08-24] MEDS ORDERED: DIAZEPAM 5 MG TAB PO ONE (00:45)
[2017-08-24 00:55] LABS: AUTOMATED NEUTROPHIL # 11.5 TH/MM3 (1.8-7.7); BASOPHIL # 0.1 TH/MM3 (0-0.2); BASOPHIL % 0.5 % (0.0-2.0); EOSINOPHIL # 0.2 TH/MM3 (0-0.4); HEMATOCRIT 42.6 % (39.0-51.0); HEMOGLOBIN 14.4 GM/DL (13.0-17.0); LYMPH % 12.2 % (9.0-44.0); LYMPHOCYTE # 1.8 TH/MM3 (1.0-4.8); MEAN CELL VOLUME 88.5 FL (80.0-100.0); MEAN CORPUSCULAR HEMOGLOBIN 29.9 PG (27.0-34.0); MEAN CORPUSCULAR HGB CONC 33.7 % (32.0-36.0); MEAN PLATELET VOLUME 8.4 FL (7.0-11.0); MONO % 8.7 % (0.0-8.0); MONOCYTE # 1.3 TH/MM3 (0-0.9); NEUT % 77.6 % (16.0-70.0); PLATELET COUNT 392 TH/MM3 (150-450); RED BLOOD COUNT 4.81 MIL/MM3 (4.50-5.90); WHITE BLOOD COUNT 14.9 TH/MM3 (4.0-11.0)
--- NOTE | 2017-08-24 01:01 | RADRPT ---
EXAM DATE/TIME: 08/24/2017 00:30 [facility] COMPARISON: CHEST SINGLE AP, June 18, 2017, 12:35. INDICATIONS : Patient complains of chest pain and shortness of breath. MEDICAL HISTORY : Chronic obstructive pulmonary disease. Emphysema. Hypertension. Asthma. SURGICAL HISTORY : None. ENCOUNTER: Initial ACUITY: 2 days PAIN SCORE: 4/10 LOCATION: chest FINDINGS: 2 AP views of the chest. Lungs are clear. Old left 10th rib fracture. No evidence of pleural effusion or pneumothorax. CONCLUSION: No acute cardiopulmonary disease identified. Bhavin Carlisle MD on August 24, 2017 at 0:58 Board Certified Radiologist. This report was verified electronically.
[2017-08-24 01:17] LABS: ALKALINE PHOSPHATASE 85 U/L (45-117); ALT (GPT) 53 U/L (12-78); TOTAL BILIRUBIN ADULT 0.3 MG/DL (0.2-1.0); TOTAL PROTEIN 7.1 GM/DL (6.4-8.2); TROPONIN I LESS THAN 0.02 NG/ML (0.02-0.05)
[2017-08-24 01:34] LABS: ALBUMIN 3.9 GM/DL (3.4-5.0); AST (GOT) 25 U/L (15-37); BICARBONATE 26.5 MEQ/L (21.0-32.0); BLOOD UREA NITROGEN 31 MG/DL (7-18); CALCIUM 8.3 MG/DL (8.5-10.1); CHLORIDE 104 MEQ/L (98-107); CREATININE 1.24 MG/DL (0.60-1.30); GLOMERULAR FILTRATION RATE 59 ML/MIN (>89); GLUCOSE,RANDOM 166 MG/DL (74-106); LIPASE 168 U/L (73-393); MAGNESIUM 1.9 MG/DL (1.5-2.5); SODIUM (NA) 138 MEQ/L (136-145)
[2017-08-24 02:00] VITALS: BP 133/68; PULSE 80; RESP 18; O2SAT 97
--- NOTE | 2017-08-24 03:12 | RADRPT ---
EXAM DATE/TIME: 08/24/2017 02:39 [place] COMPARISON: No previous studies available for comparison. INDICATIONS : Left side chest pain, patient felt a pop while blowing his nose. RADIATION DOSE: 9.96 CTDIvol (mGy) MEDICAL HISTORY : Hypertension. Chronic obstructive pulmonary disease. Emphysema. DVT. SURGICAL HISTORY : None. ENCOUNTER: Initial ACUITY: 1 day PAIN SCALE: 10/10 LOCATION: Left chest TECHNIQUE: Volumetric scanning of the chest was performed. Using automated exposure control and adjustment of t he mA and/or kV according to patient size, radiation dose was kept as low as reasonably achievable to obtain optimal diagnostic quality images. DICOM format image data is available electronically for r eview and comparison. Follow-up recommendations for detected pulmonary nodules are based at a minimum on nodule size and pa tient risk factors according to Fleischner Society Guidelines. FINDINGS: LUNGS: Mild bilateral pulmonary parenchymal emphysema. Mild bilateral atelectasis. PLEURAE: There is no pleural thickening or pleural effusion. No evidence of pneumothorax. MEDIASTINUM: Minimal coronary artery calcification. No enlarged lymph nodes. Aortic diameter thin normal limits. AXILLAE: Within normal limits. No lymphadenopathy. MUSCULOSKELETAL: Acute posterior ninth rib fracture on the left. MISCELLANEOUS: Moderate fatty infiltration of the liver. 5 cm mass in the upper pole of the left kidney likely repre senting a cyst. CONCLUSION: 1. Acute posterior left ninth rib fracture. 2. Mild bilateral emphysema. 3. No evidence of pleural effusion. 4. Hepatic steatosis. 5. Left upper pole renal mass likely representing a cyst. Bhavin Carlisle MD on August 24, 2017 at 3:05 Board Certified Radiologist. This report was verified electronically.
[2017-08-24] MEDS ORDERED: IBUP-232 PO (04:55)
[2017-08-24] MEDS ORDERED: NORC5TAB PO (04:55)
--- NOTE | 2017-08-24 22:10 | EKG ---
Date Performed: 08/24/2017 Time Performed: 00:26:51 PTAGE: 62 years EKG: Sinus rhythm INCOMPLETE RIGHT BUNDLE BRANCH BLOCK BORDERLINE ECG PREVIOUS TRACING : 06/18/2017 18.24 Compared to prior tracing no significant change DOCTOR: Yoseph Ch Interpretating Date/Time 08/24/2017 22:09:13
== END 2017-08-24 05:10 | disposition home or self-care (01) ==
LOC: NEPE 00:08
DX: S22.32XA Fracture of one rib, left side, initial encounter for closed fracture (principal); I10 Essential (primary) hypertension; J44.9 Chronic obstructive pulmonary disease, unspecified; X58.XXXA Exposure to other specified factors, initial encounter; Z79.899 Other long term (current) drug therapy
CPT/HCPCS: 71045; 71250; 80053; 82550; 83690; 83735; 84484; 85025; 93005; 96374; 96375; 99285; J1885; J2270